=== PATIENT | male | born 1950 | race Caucasian/White ===

== ENCOUNTER 2019-10-15 08:46 | Inpatient (IN) ==
[2019-10-15] MEDS ORDERED: Azithromycin 500 MG in 0.9 % Sodium Chloride 250 ML IVPB ONE (09:04)
[2019-10-15] MEDS ORDERED: 0.9 % Sodium Chloride 1,000 ML IVC ONE ×2 (09:04→11:16)
[2019-10-15] MEDS ORDERED: cefTRIAXone 1,000 MG in Water for inj. (sterile) 10 ML IVP ONE (09:04)
[2019-10-15] MEDS ORDERED: Isovue-370 500 ML BOTTLE IVP ONE (09:07)
[2019-10-15] MEDS ORDERED: Ondansetron 4 MG/2 ML VIAL IVP ONE (09:32)
[2019-10-15 09:41] LABS: Basophils % 0.2 %; Hematocrit 52.7 % (37.5-50.1); Hemoglobin 17.3 g/dL (12.9-16.9); Immature Granulocytes % 0.7 % (0-4); Lymphocytes # 1.2 K/mcL (0.6-4.6); Lymphocytes % 7.1 %; Mean Corpuscular HGB Conc 32.8 g/dL (31.6-35.5); Mean Corpuscular Hemoglobin 31.9 pg (28.0-33.3); Mean Corpuscular Volume 97.2 fL (83.0-100.0); Mean Platelet Volume 10.8 fL (9.4-12.4); Monocytes # 1.2 K/mcL (0.0-1.3); Monocytes % 6.9 %; Neutrophils # 14.3 K/mcL (1.6-8.9); Platelet Count 434 K/mcL (140-400); Red Blood Count 5.42 M/mcL (4.19-5.50); Red Cell Distribution Width 13.5 % (11.5-14.5); Segmented Neutrophils % 85.1 %; White Blood Count 16.8 K/mcL (4.3-11.1)
[2019-10-15 09:43] LABS: Prothrombin Time 34.6 Seconds (9.4-12.1)
[2019-10-15 09:45] LABS: Activated Partial Thrombo Time 33.6 Seconds (26.0-36.0)
[2019-10-15] MEDS: DilTIAZem 50 MG in 0.9 % Sodium Chloride 40 ML IVC SCH ×2 (09:48→16:05)
[2019-10-15 10:20] LABS: Alanine Aminotransferase 48 Units/L (7-52); Albumin 3.5 g/dL (3.5-5.7); Albumin/Globulin Ratio 0.8 (1.1-2.2); Alkaline Phosphatase 165 Units/L (34-104); Aspartate Amino Transferase 37 Units/L (13-39); BUN/Creatinine Ratio 21 (6-26); Bilirubin,Direct 1.1 mg/dL (0.0-0.2); Bilirubin,Total 2.1 mg/dL (0.3-1.0); Blood Urea Nitrogen 42 mg/dL (8-23); Calcium 9.6 mg/dL (8.6-10.3); Carbon Dioxide 25 mEq/L (23-29); Chloride 91 mEq/L (98-107); Ferritin 1024 ng/mL (20-250); Globulin 4.6 g/dL (2.4-3.5); Glucose 167 mg/dL (70-105); Lipase 9 Units/L (11-82); Magnesium 2.1 mg/dL (1.6-2.6); Osmolality,Calculated 292 (280-300); Phosphorous 6.3 mg/dL (2.7-4.5); Potassium 3.5 mEq/L (3.5-5.1); Sodium 134 mEq/L (136-145); Total Protein 8.1 g/dL (6.4-8.9); Troponin I 0.03 ng/mL (< 0.04); eGFR For African Americans 39 (> 60); eGFR For Non-African Americans 32 (> 60)
[2019-10-15 10:33] LABS: Bilirubin,Urine Large (Negative); Blood,Urine Negative (Negative); Clarity,Urine Cloudy (Clear); Color,Urine Orange (Yellow); Glucose,Urine (UA) Normal (Normal); Ketones,Urine Trace mg/dL (Negative); Leukocyte Esterase,Urine Small (Negative); Nitrite,Urine Positive (Negative); Protein,Urine Trace mg/dL (Neg-Trace); Specific Gravity,Urine 1.024 (1.010-1.025)
[2019-10-15 10:36] LABS: Bacteria,Urine None Seen per hpf (None-Few); Squamous Epithelial Cell,Urine Many per lpf (None-Few)
[2019-10-15 11:02] LABS: RBC,Urine 0-3 per hpf (0-3)
[2019-10-15 11:20] LABS: VBG HCO3 24 mEq/L (21-27); VBG PCO2 34 mmHg (41-51); VBG PH 7.46 pH Units (7.32-7.42); VBG PO2 87 mmHg (25-50)
[2019-10-15] MEDS ORDERED: *HR* Promethazine 25 MG/ML VIAL IVP ONE (11:26)
[2019-10-15] MEDS ORDERED: *HR* FentaNYL (PF) 100 MCG/2 ML VIAL IVP ONE (11:32)
[2019-10-15] MEDS ORDERED: Piperacillin/Tazobactam 3.375 GM in 0.9 % Sodium Chloride Mini Bag 100 ML IVPB ONE (12:23)
[2019-10-15] MEDS ORDERED: Amiodarone Premix 150 MG/100 ML BAG IVPB ONE (12:55)
[2019-10-15 14:02] LABS: C-Reactive Protein > 300 mg/L (Less than 10)
[2019-10-15] MEDS ORDERED: *HR* Promethazine 25 MG/ML VIAL IVP PRN (14:36)
[2019-10-15] MEDS ORDERED: Naloxone 0.4 MG/ML INJ IVP PRN (14:36)
[2019-10-15] MEDS ORDERED: *HR* Dextrose 50 % in Water (Syg) 50 ML SYRINGE IVP PRN (14:40)
[2019-10-15] MEDS ORDERED: Dextrose Gel 15 GM/37.5 ML TUBE PO PRN ×2 (14:40)
[2019-10-15] MEDS ORDERED: D5% in Water 1,000 ML IVC PRN (14:40)
[2019-10-15] MEDS ORDERED: Ringers Solution, Lactated 1,000 ML IVC SCH ×2 (14:45→14:54)
[2019-10-15] MEDS ORDERED: *HR* Metoprolol 5 MG/5 ML VIAL IVP ONE (15:13)
[2019-10-15] MEDS: Pantoprazole 40 MG VIAL IVP SCH (15:47)
[2019-10-15] MEDS ORDERED: *HR* Digoxin 0.5 MG/2 ML AMPUL IVP ONE ×2 (15:59→18:12)
[2019-10-15] MEDS ORDERED: Amiodarone Premix 360 MG/200 ML BAG IVC ONE (16:58)
[2019-10-15] MEDS ORDERED: Amiodarone Premix 360 MG/200 ML BAG IVC SCH (17:00)
[2019-10-15] MEDS: 0.9 % Sodium Chloride 1,000 ML IVC SCH (18:01)
[2019-10-15] MEDS: Insulin LISPRO 300 UNITS/3 ML VIAL SQ SCH (18:19)
[2019-10-15 20:02] LABS: Adenovirus Not Detected (Not Detect); Bordetella Pertussis Not Detected (Not Detect); Chlamydophila pneumoniae Not Detected (Not Detect); Coronavirus 229E Not Detected (Not Detect); Coronavirus HKU1 Not Detected (Not Detect); Coronavirus NL63 Not Detected (Not Detect); Coronavirus OC43 Not Detected (Not Detect); Human Metapneumovirus Not Detected (Not Detect); Human Rhinovirus/Enterovirus Not Detected (Not Detect); Influenza A Subtype 2009 H1 Not Detected (Not Detect); Influenza B Not Detected (Not Detect); Mycoplasma pneumoniae Not Detected (Not Detect); Parainfluenza Virus 1 Not Detected (Not Detect); Parainfluenza Virus 2 Not Detected (Not Detect); Parainfluenza Virus 3 Not Detected (Not Detect); Parainfluenza Virus 4 Not Detected (Not Detect); Respiratory Syncytial Virus Not Detected (Not Detect)
[2019-10-16] MEDS: Piperacillin/Tazobactam 3.375 GM in 0.9 % Sodium Chloride Mini Bag 100 ML IVPB SCH ×3 (00:39→16:37)
[2019-10-16] MEDS: Insulin LISPRO 300 UNITS/3 ML VIAL SQ SCH ×4 (01:08→18:14)
[2019-10-16 05:15] LABS: Basophils % 0.2 %; Hematocrit 48.8 % (37.5-50.1); Immature Granulocytes % 0.7 % (0-4); Lymphocytes # 0.9 K/mcL (0.6-4.6); Lymphocytes % 4.5 %; Mean Corpuscular HGB Conc 32.2 g/dL (31.6-35.5); Mean Corpuscular Hemoglobin 31.5 pg (28.0-33.3); Mean Corpuscular Volume 97.8 fL (83.0-100.0); Mean Platelet Volume 10.3 fL (9.4-12.4); Monocytes % 5.2 %; Neutrophils # 17.2 K/mcL (1.6-8.9); Platelet Count 513 K/mcL (140-400); Red Blood Count 4.99 M/mcL (4.19-5.50); Red Cell Distribution Width 13.9 % (11.5-14.5); Segmented Neutrophils % 89.4 %; White Blood Count 19.2 K/mcL (4.3-11.1)
[2019-10-16 05:16] LABS: Hemoglobin 15.7 g/dL (12.9-16.9)
[2019-10-16 05:34] LABS: Magnesium 2.6 mg/dL (1.6-2.6); Phosphorous 6.5 mg/dL (2.7-4.5)
[2019-10-16 05:48] LABS: Thyroid Stimulating Hormone 2.371 mcIU/mL (0.340-5.600)
[2019-10-16 06:41] LABS: Calcium 8.5 mg/dL (8.6-10.3); Potassium 4.1 mEq/L (3.5-5.1)
[2019-10-16] MEDS: Pantoprazole 40 MG VIAL IVP SCH (07:47)
[2019-10-16] MEDS: 0.9 % Sodium Chloride 1,000 ML IVC SCH ×3 (07:48→22:02)
[2019-10-16] MEDS ORDERED: Amiodarone Premix 360 MG/200 ML BAG IVC SCH (15:45)
[2019-10-16] MEDS ORDERED: *HR* Heparin 5,000 UNIT/ML VIAL SQ SCH (18:00)
[2019-10-16] MEDS ORDERED: 0.9 % Sodium Chloride 1,000 ML IVC ONE (23:14)
[2019-10-17] MEDS ORDERED: Acetaminophen IV 1,000 MG/100 ML INFUS..BTL IVPB ONE (00:05)
[2019-10-17] MEDS: Insulin LISPRO 300 UNITS/3 ML VIAL SQ SCH ×5 (00:30→23:56)
[2019-10-17] MEDS: Piperacillin/Tazobactam 3.375 GM in 0.9 % Sodium Chloride Mini Bag 100 ML IVPB SCH ×2 (00:34→18:22)
[2019-10-17] MEDS ORDERED: D5% in Water 1,000 ML IVC PRN (00:53)
[2019-10-17] MEDS ORDERED: *HR* Promethazine 25 MG/ML VIAL IVP PRN (00:53)
[2019-10-17] MEDS ORDERED: 0.9 % Sodium Chloride 1,000 ML IVC SCH (00:53)
[2019-10-17] MEDS ORDERED: Naloxone 0.4 MG/ML INJ IVP PRN (00:53)
[2019-10-17] MEDS ORDERED: Dextrose Gel 15 GM/37.5 ML TUBE PO PRN ×2 (00:53)
[2019-10-17] MEDS ORDERED: *HR* Dextrose 50 % in Water (Syg) 50 ML SYRINGE IVP PRN (00:53)
[2019-10-17] MEDS: Amiodarone Premix 360 MG/200 ML BAG IVC SCH ×2 (03:37→16:09)
[2019-10-17 04:52] LABS: VBG HCO3 18 mEq/L (21-27); VBG PCO2 41 mmHg (41-51); VBG PH 7.24 pH Units (7.32-7.42); VBG PO2 65 mmHg (25-50)
[2019-10-17 05:00] LABS: Hematocrit 53.7 % (37.5-50.1); Mean Corpuscular HGB Conc 31.7 g/dL (31.6-35.5); Mean Corpuscular Hemoglobin 32.1 pg (28.0-33.3); Mean Corpuscular Volume 101.3 fL (83.0-100.0); Platelet Count 533 K/mcL (140-400); Red Cell Distribution Width 14.5 % (11.5-14.5); White Blood Count 21.4 K/mcL (4.3-11.1)
[2019-10-17 05:15] LABS: Albumin/Globulin Ratio 0.7 (1.1-2.2); Bilirubin,Direct 0.6 mg/dL (0.0-0.2); Bilirubin,Indirect 0.5 mg/dL (0.0-1.0); Bilirubin,Total 1.1 mg/dL (0.3-1.0); Calcium 8.7 mg/dL (8.6-10.3); Globulin 4.4 g/dL (2.4-3.5); Magnesium 2.7 mg/dL (1.6-2.6); Phosphorous 8.7 mg/dL (2.7-4.5); Potassium 4.5 mEq/L (3.5-5.1); Total Protein 7.4 g/dL (6.4-8.9)
[2019-10-17 05:37] LABS: INR 1.4; Prothrombin Time 16.4 Seconds (9.4-12.1)
[2019-10-17] MEDS: *HR* Heparin 5,000 UNIT/ML VIAL SQ SCH ×2 (06:09→17:04)
[2019-10-17] MEDS ORDERED: Piperacillin/Tazobactam 3.375 GM in 0.9 % Sodium Chloride Mini Bag 100 ML IVPB SCH (08:00)
[2019-10-17] MEDS: Pantoprazole 40 MG VIAL IVP SCH (09:51)
[2019-10-17] MEDS ORDERED: *HR* FentaNYL (PF) 100 MCG/2 ML VIAL ONE ×2 (10:06→12:20)
[2019-10-17] MEDS ORDERED: *HR* Midazolam HCl 2 MG/2 ML VIAL ONE (10:06)
[2019-10-17] MEDS ORDERED: *HR* Propofol 200 MG/20 ML VIAL IVP ONE (10:06)
[2019-10-17] MEDS ORDERED: *HR* Rocuronium Bromide 50 MG/5 ML VIAL ONE (10:06)
[2019-10-17] MEDS ORDERED: Lidocaine -MPF 2% 2 ML VIAL ONE (10:06)
[2019-10-17] MEDS ORDERED: Ondansetron 4 MG/2 ML VIAL ONE (10:06)
[2019-10-17] MEDS ORDERED: Lidocaine -MPF 4% 5 ML AMPUL ONE (10:06)
[2019-10-17] MEDS ORDERED: *HR* Succinylcholine 200 MG/10 ML VIAL IVP ONE (10:09)
[2019-10-17] MEDS ORDERED: EPHEDrine 50 MG/ML VIAL ONE (10:11)
[2019-10-17] MEDS ORDERED: CefOXitin 1,000 MG VIAL ONE ×2 (10:13→12:15)
[2019-10-17] MEDS ORDERED: D5% in Water 0 ML ONE (10:16)
[2019-10-17] MEDS ORDERED: *HR* Norepinephrine 4 MG/4 ML VIAL IVC ONE (10:16)
[2019-10-17] MEDS ORDERED: Albumin Human 5% 25.0 GM/500 ML IV.SOLN ONE (10:17)
[2019-10-17] MEDS ORDERED: *HR* Vasopressin 20 UNIT/ML VIAL ONE (10:17)
[2019-10-17] MEDS ORDERED: Heparin 1,000 UNITS/500 mL 500 ML ONE (10:18)
[2019-10-17] MEDS ORDERED: *HR* Phenylephrine 10 MG/ML VIAL ONE ×2 (10:22→12:05)
[2019-10-17] MEDS ORDERED: *HR* Etomidate 40 MG/20 ML VIAL IVP ONE (11:07)
[2019-10-17] MEDS ORDERED: *HR* PHENYLEPHRINE 1,000 MCG/10 ML SYRINGE IVP ONE ×2 (12:03→12:36)
[2019-10-17] MEDS ORDERED: Phenylephrine 10 MG in 0.9 % Sodium Chloride 250 ML IVC SCH (13:00)
[2019-10-17 13:17] LABS: Acinetobacter baumannii by PCR Not Detected (Not Detect); Candida albicans by PCR Not Detected (Not Detect); Candida glabrata by PCR Not Detected (Not Detect); Candida krusei by PCR Not Detected (Not Detect); Candida parapsilosis by PCR Not Detected (Not Detect); Candida tropicalis by PCR Not Detected (Not Detect); Enterobacter cloacae Cmplx PCR Not Detected (Not Detect); Enterobacteriaceae by PCR Not Detected (Not Detect); Enterococcus by PCR Not Detected (Not Detect); Escherichia coli by PCR Not Detected (Not Detect); Klebsiella oxytoca by PCR Not Detected (Not Detect); Klebsiella pneumoniae by PCR Not Detected (Not Detect); Proteus by PCR Not Detected (Not Detect); Pseudomonas aeruginosa by PCR Not Detected (Not Detect); Serratia marcescens by PCR Not Detected (Not Detect); Staphylococcus aureus by PCR Not Detected (Not Detect); Staphylococcus by PCR DETECTED (Not Detect); Streptococcus agalactiae(B)PCR Not Detected (Not Detect); Streptococcus by PCR Not Detected (Not Detect); Streptococcus pneumoniae PCR Not Detected (Not Detect); Streptococcus pyogenes (A) PCR Not Detected (Not Detect); mecA Methicillin-Resist Gene Not Detected (Not Detect)
[2019-10-17 13:44] LABS: ABG Base Excess -12 mEq/L (-2 to 3); ABG HCO3 19 mEq/L (21-27); ABG Oxygen Saturation 99 % (95-98); ABG PCO2 59 mmHg (35-45); ABG PH 7.11 pH Units (7.32-7.45); ABG PO2 160 mmHg (85-104); ABG TCO2 21 mEq/L (20-26); Blood Gas Modality ASSIST CONTROL; Blood Gas VT 500 cc
[2019-10-17] MEDS ORDERED: Sodium Bicarbonate 150 MEQ in D5% in Water 1,000 ML IVC SCH (14:00)
[2019-10-17] MEDS ORDERED: Vancomycin 1 EACH in 0.9 % Sodium Chloride 250 ML IVPB PRN (14:00)
[2019-10-17] MEDS ORDERED: Sodium Bicarbonate 50 MEQ/50 ML VIAL ONE (14:16)
[2019-10-17] MEDS: Norepinephrine 4 MG in 0.9 % Sodium Chloride 250 ML IVC SCH ×2 (14:22→20:06)
[2019-10-17] MEDS ORDERED: Phenylephrine 20 MG in 0.9 % Sodium Chloride 250 ML IVC SCH (14:45)
[2019-10-17] MEDS: FentaNYL (PF) 1,000 MCG in 0.9 % Sodium Chloride 80 ML IVC SCH ×2 (14:49→23:58)
[2019-10-17 14:53] LABS: Calcium 8.4 mg/dL (8.6-10.3); Potassium 4.7 mEq/L (3.5-5.1)
[2019-10-17] MEDS: Phenylephrine 50 MG in 0.9 % Sodium Chloride 250 ML IVC SCH ×2 (15:25→20:07)
[2019-10-17 16:19] LABS: ABG Base Excess -10 mEq/L (-2 to 3); ABG HCO3 19 mEq/L (21-27); ABG Oxygen Saturation 94 % (95-98); ABG PCO2 50 mmHg (35-45); ABG PH 7.18 pH Units (7.32-7.45); ABG PO2 89 mmHg (85-104); ABG TCO2 20 mEq/L (20-26); Blood Gas Modality ASSIST CONTROL; Blood Gas VT 550 cc
[2019-10-17] MEDS: Micafungin 100 MG in 0.9 % Sodium Chloride Mini Bag 100 ML IVPB SCH (16:59)
[2019-10-17] MEDS ORDERED: Perflutren Lipid Microsphere 1.3 ML in 0.9 % Sodium Chloride 8.7 ML IVP ONE (17:13)
[2019-10-17] MEDS: Dexmedetomidine HCl 400 MCG/100 ML MLS IVC SCH (17:18)
[2019-10-17 18:30] LABS: ABG Base Excess -9 mEq/L (-2 to 3); ABG HCO3 18 mEq/L (21-27); ABG Oxygen Saturation 98 % (95-98); ABG PCO2 43 mmHg (35-45); ABG PH 7.24 pH Units (7.32-7.45); ABG PO2 117 mmHg (85-104); ABG TCO2 20 mEq/L (20-26); Blood Gas Modality ASSIST CONTROL; Blood Gas VT 550 cc
[2019-10-17 22:24] LABS: ABG Base Excess -7 mEq/L (-2 to 3); ABG HCO3 20 mEq/L (21-27); ABG Oxygen Saturation 91 % (95-98); ABG PCO2 44 mmHg (35-45); ABG PH 7.26 pH Units (7.32-7.45); ABG PO2 71 mmHg (85-104); ABG TCO2 21 mEq/L (20-26); Blood Gas Modality VC; Blood Gas VT 550 cc
[2019-10-18] MEDS: Phenylephrine 50 MG in 0.9 % Sodium Chloride 250 ML IVC SCH ×5 (01:20→22:09)
[2019-10-18] MEDS: Piperacillin/Tazobactam 3.375 GM in 0.9 % Sodium Chloride Mini Bag 100 ML IVPB SCH ×2 (01:50→14:44)
[2019-10-18] MEDS: Norepinephrine 4 MG in 0.9 % Sodium Chloride 250 ML IVC SCH ×2 (01:55→10:35)
[2019-10-18] MEDS: Dexmedetomidine HCl 400 MCG/100 ML MLS IVC SCH ×3 (03:14→22:09)
[2019-10-18] MEDS: Amiodarone Premix 360 MG/200 ML BAG IVC SCH ×3 (03:15→17:04)
[2019-10-18 04:24] LABS: Hematocrit 43.1 % (37.5-50.1); Hemoglobin 13.9 g/dL (12.9-16.9); Mean Corpuscular HGB Conc 32.3 g/dL (31.6-35.5); Mean Corpuscular Hemoglobin 31.4 pg (28.0-33.3); Mean Corpuscular Volume 97.3 fL (83.0-100.0); Mean Platelet Volume 9.9 fL (9.4-12.4); Platelet Count 443 K/mcL (140-400); Red Blood Count 4.43 M/mcL (4.19-5.50); Red Cell Distribution Width 14.6 % (11.5-14.5); White Blood Count 16.5 K/mcL (4.3-11.1)
[2019-10-18 04:56] LABS: Albumin 2.4 g/dL (3.5-5.7); Albumin/Globulin Ratio 0.8 (1.1-2.2); Calcium 7.5 mg/dL (8.6-10.3); Globulin 3.2 g/dL (2.4-3.5); Magnesium 2.5 mg/dL (1.6-2.6); Potassium 4.8 mEq/L (3.5-5.1); Total Protein 5.6 g/dL (6.4-8.9); Troponin I 0.08 ng/mL (< 0.04)
[2019-10-18 05:02] LABS: ABG Base Excess -7 mEq/L (-2 to 3); ABG HCO3 20 mEq/L (21-27); ABG Oxygen Saturation 96 % (95-98); ABG PCO2 42 mmHg (35-45); ABG PH 7.28 pH Units (7.32-7.45); ABG PO2 96 mmHg (85-104); ABG TCO2 21 mEq/L (20-26); Blood Gas Modality ASSIST CONTROL; Blood Gas VT 550 cc
[2019-10-18] MEDS: *HR* Heparin 5,000 UNIT/ML VIAL SQ SCH ×2 (05:30→18:24)
[2019-10-18] MEDS: Insulin LISPRO 300 UNITS/3 ML VIAL SQ SCH ×5 (05:35→23:06)
[2019-10-18] MEDS: Micafungin 100 MG in 0.9 % Sodium Chloride Mini Bag 100 ML IVPB SCH (08:13)
[2019-10-18] MEDS: Pantoprazole 40 MG VIAL IVP SCH (08:17)
[2019-10-18] MEDS: Levalbuterol Neb 1.25 MG/3 ML IH SCH ×5 (09:13→23:38)
[2019-10-18] MEDS ORDERED: Heparin 1,000 UNITS/500 mL 500 ML ONE (09:37)
[2019-10-18] MEDS ORDERED: *HR* Heparin 5,000 UNIT/ML VIAL ONE (09:39)
[2019-10-18] MEDS ORDERED: 0.9 % Sodium Chloride 1,000 ML PRIME ONE ×2 (10:16)
[2019-10-18] MEDS ORDERED: *HR* Alteplase (Cathflo) 2 MG VIAL IVP PRN (10:16)
[2019-10-18] MEDS ORDERED: 0.9 % Sodium Chloride 1,000 ML PRIME SCH (10:30)
[2019-10-18] MEDS: FentaNYL (PF) 1,000 MCG in 0.9 % Sodium Chloride 80 ML IVC SCH ×2 (10:34→19:43)
[2019-10-18 12:09] LABS: Phosphorous 9.7 mg/dL (2.7-4.5)
[2019-10-18] MEDS: Sodium Bicarbonate 150 MEQ in D5% in Water 1,000 ML IVC SCH (12:21)
[2019-10-18] MEDS: PrismaSATE BGK 4/2.5 5,000 ML CRRT SCH ×4 (13:44→20:26)
[2019-10-18] MEDS ORDERED: 0.9 % Sodium Chloride 500 ML ONE (13:54)
[2019-10-18 16:35] LABS: VBG Ionized Calcium 0.93 mmol/L (1.15-1.35)
[2019-10-18 16:59] LABS: Calcium 7.4 mg/dL (8.6-10.3); Phosphorous 8.9 mg/dL (2.7-4.5); Potassium 4.7 mEq/L (3.5-5.1); Troponin I 0.08 ng/mL (< 0.04)
[2019-10-18] MEDS ORDERED: Clinimix 5%-20% SOLUTION 2,000 ML with MVI, adult with vitamin K 10 ML, Sodium Acetat... IVC SCH (17:00)
[2019-10-18 20:20] LABS: Magnesium 2.6 mg/dL (1.6-2.6)
[2019-10-18 23:11] LABS: ABG Base Excess -5 mEq/L (-2 to 3); ABG HCO3 21 mEq/L (21-27); ABG Oxygen Saturation 97 % (95-98); ABG PCO2 38 mmHg (35-45); ABG PH 7.34 pH Units (7.32-7.45); ABG PO2 99 mmHg (85-104); ABG TCO2 22 mEq/L (20-26); Blood Gas Modality AF; Blood Gas VT 550 cc
[2019-10-19] MEDS: Sodium Bicarbonate 150 MEQ in D5% in Water 1,000 ML IVC SCH (00:31)
[2019-10-19] MEDS: PrismaSATE BGK 4/2.5 5,000 ML CRRT SCH ×8 (01:16→17:53)
[2019-10-19] MEDS: Piperacillin/Tazobactam 3.375 GM in 0.9 % Sodium Chloride Mini Bag 100 ML IVPB SCH ×3 (01:53→20:24)
[2019-10-19] MEDS ORDERED: 0.9 % Sodium Chloride 500 ML ONE ×2 (03:26→12:26)
[2019-10-19] MEDS: Levalbuterol Neb 1.25 MG/3 ML IH SCH ×6 (03:30→23:10)
[2019-10-19 03:56] LABS: Basophils % 0.1 %; Eosinophils % 0.1 %; Hematocrit 34.8 % (37.5-50.1); Hemoglobin 11.4 g/dL (12.9-16.9); Immature Granulocytes % 1.1 % (0-4); Lymphocytes # 0.9 K/mcL (0.6-4.6); Mean Corpuscular HGB Conc 32.8 g/dL (31.6-35.5); Mean Corpuscular Hemoglobin 31.5 pg (28.0-33.3); Mean Corpuscular Volume 96.1 fL (83.0-100.0); Mean Platelet Volume 10.3 fL (9.4-12.4); Monocytes # 0.6 K/mcL (0.0-1.3); Monocytes % 4.3 %; Neutrophils # 13.2 K/mcL (1.6-8.9); Platelet Count 260 K/mcL (140-400); Red Blood Count 3.62 M/mcL (4.19-5.50); Red Cell Distribution Width 14.7 % (11.5-14.5); Segmented Neutrophils % 88.4 %
[2019-10-19] MEDS: *HR* Heparin 5,000 UNIT/ML VIAL CRRT PRN ×2 (04:04→23:16)
[2019-10-19] MEDS: FentaNYL (PF) 1,000 MCG in 0.9 % Sodium Chloride 80 ML IVC SCH ×3 (04:04→21:16)
[2019-10-19] MEDS: Norepinephrine 4 MG in 0.9 % Sodium Chloride 250 ML IVC SCH ×2 (04:06→15:18)
[2019-10-19] MEDS: Dexmedetomidine HCl 400 MCG/100 ML MLS IVC SCH ×4 (04:09→23:17)
[2019-10-19] MEDS: Amiodarone Premix 360 MG/200 ML BAG IVC SCH ×2 (04:27→16:50)
[2019-10-19] MEDS: Insulin LISPRO 300 UNITS/3 ML VIAL SQ SCH ×5 (04:28→20:22)
[2019-10-19 05:05] LABS: ABG Base Excess -3 mEq/L (-2 to 3); ABG HCO3 23 mEq/L (21-27); ABG Oxygen Saturation 97 % (95-98); ABG PCO2 42 mmHg (35-45); ABG PH 7.34 pH Units (7.32-7.45); ABG PO2 100 mmHg (85-104); ABG TCO2 24 mEq/L (20-26); Blood Gas Modality AF; Blood Gas VT 550 cc
[2019-10-19 05:17] LABS: Albumin 2.2 g/dL (3.5-5.7); Albumin/Globulin Ratio 0.7 (1.1-2.2); Bilirubin,Direct 0.5 mg/dL (0.0-0.2); Bilirubin,Indirect 0.4 mg/dL (0.0-1.0); Bilirubin,Total 0.9 mg/dL (0.3-1.0); Calcium 7.4 mg/dL (8.6-10.3); Globulin 3.1 g/dL (2.4-3.5); Magnesium 2.4 mg/dL (1.6-2.6); Phosphorous 6.5 mg/dL (2.7-4.5); Potassium 4.5 mEq/L (3.5-5.1); Total Protein 5.3 g/dL (6.4-8.9)
[2019-10-19] MEDS: *HR* Heparin 5,000 UNIT/ML VIAL SQ SCH ×2 (05:48→16:49)
[2019-10-19] MEDS: Micafungin 100 MG in 0.9 % Sodium Chloride Mini Bag 100 ML IVPB SCH (07:39)
[2019-10-19] MEDS: Pantoprazole 40 MG VIAL IVP SCH (07:41)
[2019-10-19] MEDS: Chlorhexidine Rinse 15 ML MOUTHWASH MM SCH ×2 (09:22→20:24)
[2019-10-19] MEDS: Phenylephrine 50 MG in 0.9 % Sodium Chloride 250 ML IVC SCH (13:37)
[2019-10-19] MEDS ORDERED: Clinimix 5%-20% SOLUTION 2,000 ML with MVI, adult with vitamin K 10 ML, Sodium Acetat... IVC SCH (17:00)
[2019-10-19] MEDS ORDERED: *HR* Heparin 5,000 UNIT/ML VIAL ONE (18:17)
[2019-10-19] MEDS ORDERED: SODIUM CHLORIDE 0.9% IVC SCH (21:15)
[2019-10-19] MEDS ORDERED: FENTANYL IVC SCH (21:15)
[2019-10-19] MEDS: Norepinephrine 8 MG in 0.9 % Sodium Chloride 250 ML IVC SCH (23:08)
[2019-10-20] MEDS: Insulin LISPRO 300 UNITS/3 ML VIAL SQ SCH ×6 (00:12→19:59)
[2019-10-20] MEDS: Amiodarone Premix 360 MG/200 ML BAG IVC SCH ×2 (02:08→16:26)
[2019-10-20] MEDS: Levalbuterol Neb 1.25 MG/3 ML IH SCH ×6 (03:01→23:10)
[2019-10-20] MEDS: Piperacillin/Tazobactam 3.375 GM in 0.9 % Sodium Chloride Mini Bag 100 ML IVPB SCH ×3 (03:41→19:54)
[2019-10-20] MEDS: Dexmedetomidine HCl 400 MCG/100 ML MLS IVC SCH ×4 (03:42→20:59)
[2019-10-20 03:48] LABS: Hematocrit 37.3 % (37.5-50.1); Hemoglobin 12.5 g/dL (12.9-16.9); Mean Corpuscular HGB Conc 33.5 g/dL (31.6-35.5); Mean Corpuscular Hemoglobin 31.3 pg (28.0-33.3); Mean Corpuscular Volume 93.5 fL (83.0-100.0); Mean Platelet Volume 10.3 fL (9.4-12.4); Platelet Count 233 K/mcL (140-400); Red Blood Count 3.99 M/mcL (4.19-5.50); Red Cell Distribution Width 14.6 % (11.5-14.5); White Blood Count 15.8 K/mcL (4.3-11.1)
[2019-10-20 04:08] LABS: Albumin 2.2 g/dL (3.5-5.7); Albumin/Globulin Ratio 0.7 (1.1-2.2); Calcium 7.3 mg/dL (8.6-10.3); Magnesium 2.4 mg/dL (1.6-2.6); Phosphorous 4.8 mg/dL (2.7-4.5); Potassium 4.8 mEq/L (3.5-5.1); Total Protein 5.3 g/dL (6.4-8.9)
[2019-10-20 04:09] LABS: Globulin 3.1 g/dL (2.4-3.5)
[2019-10-20 04:19] LABS: ABG Base Excess -1 mEq/L (-2 to 3); ABG HCO3 24 mEq/L (21-27); ABG Oxygen Saturation 96 % (95-98); ABG PCO2 38 mmHg (35-45); ABG PH 7.41 pH Units (7.32-7.45); ABG PO2 80 mmHg (85-104); ABG TCO2 25 mEq/L (20-26); Blood Gas Modality VC; Blood Gas VT 550 cc
[2019-10-20] MEDS: *HR* Heparin 5,000 UNIT/ML VIAL SQ SCH ×2 (05:16→16:27)
[2019-10-20] MEDS: Pantoprazole 40 MG VIAL IVP SCH (08:06)
[2019-10-20] MEDS: Chlorhexidine Rinse 15 ML MOUTHWASH MM SCH ×2 (08:06→19:54)
[2019-10-20] MEDS: Micafungin 100 MG in 0.9 % Sodium Chloride Mini Bag 100 ML IVPB SCH (08:06)
[2019-10-20] MEDS ORDERED: *HR* Metoprolol 5 MG/5 ML VIAL IVP PRN (10:44)
[2019-10-20] MEDS ORDERED: D10% in Water 500 ML IVC PRN (11:12)
[2019-10-20] MEDS: Norepinephrine 8 MG in 0.9 % Sodium Chloride 250 ML IVC SCH (13:39)
[2019-10-20] MEDS ORDERED: Clinimix E 5%-15% SOLUTION 2,000 ML with MVI, adult with vitamin K 10 ML IVC SCH (17:00)
[2019-10-20] MEDS: Lacri-Lube 3.5 GM TUBE OP SCH (19:58)
[2019-10-21] MEDS: Insulin LISPRO 300 UNITS/3 ML VIAL SQ SCH ×7 (00:26→23:56)
[2019-10-21] MEDS: Levalbuterol Neb 1.25 MG/3 ML IH SCH ×6 (03:03→23:30)
[2019-10-21] MEDS: Dexmedetomidine HCl 400 MCG/100 ML MLS IVC SCH ×5 (03:10→21:03)
[2019-10-21 03:23] LABS: Basophils # 0.1 K/mcL (0.0-0.2); Basophils % 0.4 %; Eosinophils # 0.1 K/mcL (0.0-0.6); Eosinophils % 0.4 %; Hematocrit 36.1 % (37.5-50.1); Hemoglobin 12.1 g/dL (12.9-16.9); Immature Granulocytes % 2.9 % (0-4); Lymphocytes % 6.5 %; Mean Corpuscular HGB Conc 33.5 g/dL (31.6-35.5); Mean Corpuscular Volume 92.6 fL (83.0-100.0); Mean Platelet Volume 10.7 fL (9.4-12.4); Monocytes % 6.5 %; Neutrophils # 13.2 K/mcL (1.6-8.9); Platelet Count 200 K/mcL (140-400); Red Cell Distribution Width 14.6 % (11.5-14.5); Segmented Neutrophils % 83.3 %; White Blood Count 15.8 K/mcL (4.3-11.1)
[2019-10-21 03:42] LABS: Albumin/Globulin Ratio 0.6 (1.1-2.2); Bilirubin,Direct 0.6 mg/dL (0.0-0.2); Bilirubin,Indirect 0.4 mg/dL (0.0-1.0); Globulin 3.2 g/dL (2.4-3.5); Total Protein 5.2 g/dL (6.4-8.9)
[2019-10-21 04:02] LABS: Calcium 7.5 mg/dL (8.6-10.3); Magnesium 2.6 mg/dL (1.6-2.6); Potassium 4.8 mEq/L (3.5-5.1)
[2019-10-21] MEDS: Amiodarone Premix 360 MG/200 ML BAG IVC SCH ×2 (04:04→16:59)
[2019-10-21] MEDS: Piperacillin/Tazobactam 3.375 GM in 0.9 % Sodium Chloride Mini Bag 100 ML IVPB SCH ×3 (04:07→20:47)
[2019-10-21 04:26] LABS: ABG Base Excess -3 mEq/L (-2 to 3); ABG HCO3 21 mEq/L (21-27); ABG Oxygen Saturation 97 % (95-98); ABG PCO2 31 mmHg (35-45); ABG PH 7.43 pH Units (7.32-7.45); ABG PO2 90 mmHg (85-104); ABG TCO2 22 mEq/L (20-26); Blood Gas Modality VC; Blood Gas VT 500 cc
[2019-10-21] MEDS: *HR* Heparin 5,000 UNIT/ML VIAL SQ SCH (06:39)
[2019-10-21] MEDS: Pantoprazole 40 MG VIAL IVP SCH (07:37)
[2019-10-21] MEDS: Chlorhexidine Rinse 15 ML MOUTHWASH MM SCH ×2 (07:37→20:51)
[2019-10-21] MEDS: Micafungin 100 MG in 0.9 % Sodium Chloride Mini Bag 100 ML IVPB SCH (07:37)
[2019-10-21] MEDS: Lacri-Lube 3.5 GM TUBE OP SCH ×2 (07:41→20:52)
[2019-10-21 12:49] LABS: VBG Ionized Calcium 1.02 mmol/L (1.15-1.35)
[2019-10-21] MEDS ORDERED: *HR* Heparin 5,000 UNIT/ML VIAL IVP PRN (13:04)
[2019-10-21] MEDS ORDERED: *HR* Heparin 5,000 UNIT/ML VIAL CRRT PRN (13:07)
[2019-10-21] MEDS ORDERED: Calcium Gluconate 1gm/50mL 1 GM/50 ML BAG IVPB PRN ×2 (13:07)
[2019-10-21] MEDS ORDERED: Calcium Chloride 4,000 MG in 0.9 % Sodium Chloride 1,000 ML CRRT SCH (13:15)
[2019-10-21] MEDS: Heparin 25,000 UNIT/250 ML D5W 25,000 UNIT/250 ML IV.SOLN IVC SCH (14:45)
[2019-10-21] MEDS: PrismaSATE BGK 4/2.5 5,000 ML CRRT SCH ×6 (15:15→22:45)
[2019-10-21] MEDS ORDERED: Clinimix E 5%-15% SOLUTION 2,000 ML with MVI, adult with vitamin K 10 ML IVC SCH (17:00)
[2019-10-21] MEDS: D10% in Water 500 ML IVC PRN (17:27)
[2019-10-21 17:30] LABS: Hematocrit 35.2 % (37.5-50.1); Hemoglobin 11.8 g/dL (12.9-16.9)
[2019-10-21] MEDS ORDERED: *HR* Metoprolol 5 MG/5 ML VIAL IVP PRN (18:52)
[2019-10-21] MEDS ORDERED: *HR* Heparin 5,000 UNIT/ML VIAL ONE (20:12)
[2019-10-21] MEDS: 0.9 % Sodium Chloride 1,000 ML PRIME SCH ×2 (21:00→21:06)
[2019-10-21] MEDS: *HR* Heparin 5,000 UNIT/ML VIAL IVP PRN (21:15)
[2019-10-21] MEDS: *HR* Metoprolol 5 MG/5 ML VIAL IVP SCH (23:57)
[2019-10-22] MEDS: Dexmedetomidine HCl 400 MCG/100 ML MLS IVC SCH ×7 (00:26→22:30)
[2019-10-22] MEDS: *HR* Heparin 5,000 UNIT/ML VIAL IVP PRN (01:59)
[2019-10-22] MEDS: PrismaSATE BGK 4/2.5 5,000 ML CRRT SCH ×14 (02:04→22:46)
[2019-10-22] MEDS: Levalbuterol Neb 1.25 MG/3 ML IH SCH ×7 (03:42→23:38)
[2019-10-22] MEDS: Insulin LISPRO 300 UNITS/3 ML VIAL SQ SCH ×5 (04:00→20:23)
[2019-10-22] MEDS: D10% in Water 500 ML IVC PRN (04:02)
[2019-10-22 04:19] LABS: Basophils # 0.1 K/mcL (0.0-0.2); Basophils % 0.5 %; Eosinophils # 0.1 K/mcL (0.0-0.6); Eosinophils % 0.8 %; Hematocrit 34.9 % (37.5-50.1); Hemoglobin 11.9 g/dL (12.9-16.9); Immature Granulocytes % 4.7 % (0-4); Lymphocytes # 0.8 K/mcL (0.6-4.6); Lymphocytes % 5.4 %; Mean Corpuscular HGB Conc 34.1 g/dL (31.6-35.5); Mean Corpuscular Hemoglobin 31.8 pg (28.0-33.3); Mean Corpuscular Volume 93.3 fL (83.0-100.0); Mean Platelet Volume 10.5 fL (9.4-12.4); Monocytes # 0.9 K/mcL (0.0-1.3); Monocytes % 5.8 %; Neutrophils # 12.6 K/mcL (1.6-8.9); Platelet Count 181 K/mcL (140-400); Red Blood Count 3.74 M/mcL (4.19-5.50); Red Cell Distribution Width 14.6 % (11.5-14.5); Segmented Neutrophils % 82.8 %; White Blood Count 15.3 K/mcL (4.3-11.1)
[2019-10-22 04:31] LABS: Albumin/Globulin Ratio 0.6 (1.1-2.2); Bilirubin,Indirect 0.7 mg/dL (0.0-1.0); Bilirubin,Total 1.7 mg/dL (0.3-1.0); Calcium 7.5 mg/dL (8.6-10.3); Globulin 3.2 g/dL (2.4-3.5); Magnesium 2.5 mg/dL (1.6-2.6); Phosphorous 5.3 mg/dL (2.7-4.5); Potassium 4.5 mEq/L (3.5-5.1); Total Protein 5.2 g/dL (6.4-8.9)
[2019-10-22 04:59] LABS: ABG Base Excess 1 mEq/L (-2 to 3); ABG HCO3 25 mEq/L (21-27); ABG Oxygen Saturation 98 % (95-98); ABG PCO2 36 mmHg (35-45); ABG PH 7.45 pH Units (7.32-7.45); ABG PO2 94 mmHg (85-104); ABG TCO2 26 mEq/L (20-26); Blood Gas Modality AF; Blood Gas VT 500 cc
[2019-10-22] MEDS: *HR* Metoprolol 5 MG/5 ML VIAL IVP SCH ×3 (06:43→16:23)
[2019-10-22] MEDS: Piperacillin/Tazobactam 3.375 GM in 0.9 % Sodium Chloride Mini Bag 100 ML IVPB SCH ×3 (06:47→20:23)
[2019-10-22] MEDS: Norepinephrine 8 MG in 0.9 % Sodium Chloride 250 ML IVC SCH ×2 (07:09→21:48)
[2019-10-22] MEDS: Micafungin 100 MG in 0.9 % Sodium Chloride Mini Bag 100 ML IVPB SCH (08:27)
[2019-10-22] MEDS: Chlorhexidine Rinse 15 ML MOUTHWASH MM SCH ×2 (08:27→20:24)
[2019-10-22] MEDS: Lacri-Lube 3.5 GM TUBE OP SCH ×2 (08:28→20:24)
[2019-10-22] MEDS ORDERED: Lidocaine -MPF 1% 5 ML AMPUL INFILT ONE (08:34)
[2019-10-22] MEDS: Heparin 25,000 UNIT/250 ML D5W 25,000 UNIT/250 ML IV.SOLN IVC SCH (11:00)
[2019-10-22] MEDS: Phenylephrine 50 MG in 0.9 % Sodium Chloride 250 ML IVC SCH (15:18)
[2019-10-22] MEDS: Albumin 25% 25gram/100mL 25 GM/100 ML IV.SOLN IVPB SCH ×3 (16:21→19:54)
[2019-10-22] MEDS ORDERED: Clinimix E 5%-15% SOLUTION 2,000 ML with MVI, adult with vitamin K 10 ML IVC SCH (17:00)
[2019-10-22] MEDS ORDERED: 0.9 % Sodium Chloride 2,000 ML ONE ×2 (21:13→22:13)
[2019-10-22] MEDS ORDERED: *HR* Heparin 5,000 UNIT/ML VIAL ONE ×2 (21:13→22:13)
[2019-10-22] MEDS: 0.9 % Sodium Chloride 1,000 ML PRIME SCH (22:00)
[2019-10-22] MEDS: *HR* Heparin 5,000 UNIT/ML VIAL CRRT PRN ×2 (22:47→22:49)
[2019-10-23] MEDS: *HR* Metoprolol 5 MG/5 ML VIAL IVP SCH ×5 (00:13→23:53)
[2019-10-23] MEDS: Insulin LISPRO 300 UNITS/3 ML VIAL SQ SCH ×7 (00:38→23:53)
[2019-10-23] MEDS: Dexmedetomidine HCl 400 MCG/100 ML MLS IVC SCH ×6 (01:41→21:36)
[2019-10-23] MEDS: PrismaSATE BGK 4/2.5 5,000 ML CRRT SCH ×14 (02:06→21:34)
[2019-10-23] MEDS: Heparin 25,000 UNIT/250 ML D5W 25,000 UNIT/250 ML IV.SOLN IVC SCH (03:12)
[2019-10-23] MEDS: Levalbuterol Neb 1.25 MG/3 ML IH SCH ×6 (03:42→23:21)
[2019-10-23 03:59] LABS: Hematocrit 28.8 % (37.5-50.1); Mean Corpuscular HGB Conc 33.7 g/dL (31.6-35.5); Mean Corpuscular Hemoglobin 31.8 pg (28.0-33.3); Mean Corpuscular Volume 94.4 fL (83.0-100.0); Mean Platelet Volume 11.1 fL (9.4-12.4); Platelet Count 173 K/mcL (140-400); Red Blood Count 3.05 M/mcL (4.19-5.50); Red Cell Distribution Width 14.6 % (11.5-14.5); White Blood Count 13.9 K/mcL (4.3-11.1)
[2019-10-23 04:00] LABS: Hemoglobin 9.7 g/dL (12.9-16.9)
[2019-10-23] MEDS: Piperacillin/Tazobactam 3.375 GM in 0.9 % Sodium Chloride Mini Bag 100 ML IVPB SCH ×3 (04:18→19:44)
[2019-10-23 04:21] LABS: ABG Base Excess 2 mEq/L (-2 to 3); ABG HCO3 27 mEq/L (21-27); ABG Oxygen Saturation 97 % (95-98); ABG PCO2 41 mmHg (35-45); ABG PH 7.42 pH Units (7.32-7.45); ABG PO2 85 mmHg (85-104); ABG TCO2 28 mEq/L (20-26); Blood Gas Modality AF; Blood Gas VT 500 cc
[2019-10-23 04:23] LABS: Calcium 7.7 mg/dL (8.6-10.3); Magnesium 2.5 mg/dL (1.6-2.6); Phosphorous 3.5 mg/dL (2.7-4.5); Potassium 4.4 mEq/L (3.5-5.1)
[2019-10-23] MEDS: Micafungin 100 MG in 0.9 % Sodium Chloride Mini Bag 100 ML IVPB SCH (07:47)
[2019-10-23] MEDS: Chlorhexidine Rinse 15 ML MOUTHWASH MM SCH ×2 (07:47→19:45)
[2019-10-23] MEDS: Lacri-Lube 3.5 GM TUBE OP SCH ×2 (07:48→19:52)
[2019-10-23] MEDS ORDERED: *HR* Heparin 5,000 UNIT/ML VIAL ONE ×2 (09:25→21:47)
[2019-10-23 14:36] LABS: Hematocrit 30.1 % (37.5-50.1); Hemoglobin 9.9 g/dL (12.9-16.9)
[2019-10-23] MEDS: Phenylephrine 50 MG in 0.9 % Sodium Chloride 250 ML IVC SCH (15:29)
[2019-10-23] MEDS: Albumin 25% 25gram/100mL 25 GM/100 ML IV.SOLN IVPB SCH ×3 (16:18→19:42)
[2019-10-23] MEDS: *HR* Heparin 5,000 UNIT/ML VIAL SQ SCH (16:18)
[2019-10-23] MEDS ORDERED: Clinimix E 5%-15% SOLUTION 2,000 ML with MVI, adult with vitamin K 10 ML IVC SCH (17:00)
[2019-10-23] MEDS: Norepinephrine 8 MG in 0.9 % Sodium Chloride 250 ML IVC SCH (21:29)
[2019-10-23] MEDS ORDERED: 0.9 % Sodium Chloride 2,000 ML ONE (21:47)
[2019-10-23] MEDS: 0.9 % Sodium Chloride 1,000 ML PRIME SCH (22:38)
[2019-10-24] MEDS: PrismaSATE BGK 4/2.5 5,000 ML CRRT SCH ×4 (00:53→05:10)
[2019-10-24] MEDS: Dexmedetomidine HCl 400 MCG/100 ML MLS IVC SCH ×7 (01:10→21:57)
[2019-10-24] MEDS ORDERED: *HR* Heparin 5,000 UNIT/ML VIAL ONE (02:55)
[2019-10-24] MEDS: Levalbuterol Neb 1.25 MG/3 ML IH SCH ×5 (03:19→19:42)
[2019-10-24] MEDS: Piperacillin/Tazobactam 3.375 GM in 0.9 % Sodium Chloride Mini Bag 100 ML IVPB SCH ×3 (04:10→20:00)
[2019-10-24 05:08] LABS: Hematocrit 26.1 % (37.5-50.1); Hemoglobin 8.6 g/dL (12.9-16.9); Mean Corpuscular Hemoglobin 31.5 pg (28.0-33.3); Mean Corpuscular Volume 95.6 fL (83.0-100.0); Mean Platelet Volume 11.3 fL (9.4-12.4); Platelet Count 168 K/mcL (140-400); Red Blood Count 2.73 M/mcL (4.19-5.50); Red Cell Distribution Width 14.6 % (11.5-14.5); White Blood Count 11.9 K/mcL (4.3-11.1)
[2019-10-24 05:19] LABS: ABG Base Excess 3 mEq/L (-2 to 3); ABG HCO3 27 mEq/L (21-27); ABG Oxygen Saturation 96 % (95-98); ABG PCO2 37 mmHg (35-45); ABG PH 7.47 pH Units (7.32-7.45); ABG PO2 80 mmHg (85-104); ABG TCO2 28 mEq/L (20-26); Blood Gas Modality VC; Blood Gas VT 500 cc
[2019-10-24 05:26] LABS: BUN/Creatinine Ratio 24 (6-26); Blood Urea Nitrogen 34 mg/dL (8-23); Calcium 7.9 mg/dL (8.6-10.3); Carbon Dioxide 28 mEq/L (23-29); Chloride 102 mEq/L (98-107); Glucose 133 mg/dL (70-105); Magnesium 2.4 mg/dL (1.6-2.6); Osmolality,Calculated 290 (280-300); Phosphorous 2.7 mg/dL (2.7-4.5); Potassium 4.3 mEq/L (3.5-5.1); Sodium 135 mEq/L (136-145); eGFR For African Americans > 60 (> 60); eGFR For Non-African Americans 51 (> 60)
[2019-10-24 05:27] LABS: Albumin 2.9 g/dL (3.5-5.7); Albumin/Globulin Ratio 1.2 (1.1-2.2); Bilirubin,Direct 2.8 mg/dL (0.0-0.2); Bilirubin,Indirect 1.5 mg/dL (0.0-1.0); Bilirubin,Total 4.3 mg/dL (0.3-1.0); Globulin 2.4 g/dL (2.4-3.5); Total Protein 5.3 g/dL (6.4-8.9)
[2019-10-24] MEDS: Insulin LISPRO 300 UNITS/3 ML VIAL SQ SCH ×5 (05:27→20:01)
[2019-10-24] MEDS: *HR* Metoprolol 5 MG/5 ML VIAL IVP SCH ×3 (06:00→17:05)
[2019-10-24] MEDS: *HR* Heparin 5,000 UNIT/ML VIAL SQ SCH ×2 (06:20→18:08)
[2019-10-24] MEDS: Micafungin 100 MG in 0.9 % Sodium Chloride Mini Bag 100 ML IVPB SCH (08:24)
[2019-10-24] MEDS: Chlorhexidine Rinse 15 ML MOUTHWASH MM SCH ×2 (08:25→20:00)
[2019-10-24] MEDS ORDERED: 0.9 % Sodium Chloride 250 ML IVC PRN (08:47)
[2019-10-24] MEDS ORDERED: Albumin 25% 25gram/100mL 25 GM/100 ML IV.SOLN IVPB PRN (08:47)
[2019-10-24] MEDS: Lacri-Lube 3.5 GM TUBE OP SCH ×2 (08:53→20:01)
[2019-10-24] MEDS ORDERED: 0.9 % Sodium Chloride 1,000 ML PRIME SCH (09:00)
[2019-10-24 11:00] LABS: Hepatitis B Surface Antibody < 3.10 mIU/mL
[2019-10-24 11:11] LABS: Hepatitis B Surface Antigen Nonreactive (Nonreactive)
[2019-10-24] MEDS: Phenylephrine 50 MG in 0.9 % Sodium Chloride 250 ML IVC SCH (11:25)
[2019-10-24] MEDS ORDERED: 0.9 % Sodium Chloride 2,000 ML ONE (15:31)
[2019-10-24] MEDS ORDERED: *HR* Heparin 10,000 UNIT/10 ML VIAL ONE (15:42)
[2019-10-24] MEDS: MVI IVC SCH (15:56)
[2019-10-24] MEDS: CLINIMIX IVC SCH (15:56)
[2019-10-24] MEDS: PARENTERAL AMINO ACID 10% IVC SCH (15:56)
[2019-10-24] MEDS: [UNRECOGNIZED DRUG - OTHER] IVC SCH (15:56)
[2019-10-24] MEDS ORDERED: *HR* Heparin 10,000 UNIT/10 ML VIAL IV PRN (18:14)
[2019-10-25] MEDS: Levalbuterol Neb 1.25 MG/3 ML IH SCH ×7 (00:16→23:02)
[2019-10-25] MEDS: Norepinephrine 8 MG in 0.9 % Sodium Chloride 250 ML IVC SCH (00:28)
[2019-10-25] MEDS: Insulin LISPRO 300 UNITS/3 ML VIAL SQ SCH ×5 (00:28→20:05)
[2019-10-25] MEDS: *HR* Metoprolol 5 MG/5 ML VIAL IVP SCH ×6 (00:37→23:02)
[2019-10-25] MEDS: Dexmedetomidine HCl 400 MCG/100 ML MLS IVC SCH ×6 (01:32→23:02)
[2019-10-25 04:22] LABS: ABG Base Excess 10 mEq/L (-2 to 3); ABG HCO3 34 mEq/L (21-27); ABG Oxygen Saturation 97 % (95-98); ABG PCO2 43 mmHg (35-45); ABG PH 7.51 pH Units (7.32-7.45); ABG PO2 81 mmHg (85-104); ABG TCO2 36 mEq/L (20-26); Blood Gas Modality ASSIST CONTROL; Blood Gas VT 450 cc
[2019-10-25 05:00] LABS: Hematocrit 27.4 % (37.5-50.1); Hemoglobin 9.3 g/dL (12.9-16.9); Mean Corpuscular HGB Conc 33.9 g/dL (31.6-35.5); Mean Corpuscular Hemoglobin 32.4 pg (28.0-33.3); Mean Corpuscular Volume 95.5 fL (83.0-100.0); Mean Platelet Volume 11.3 fL (9.4-12.4); Platelet Count 194 K/mcL (140-400); Red Blood Count 2.87 M/mcL (4.19-5.50); Red Cell Distribution Width 14.6 % (11.5-14.5); White Blood Count 15.8 K/mcL (4.3-11.1)
[2019-10-25] MEDS: Piperacillin/Tazobactam 3.375 GM in 0.9 % Sodium Chloride Mini Bag 100 ML IVPB SCH ×3 (05:00→20:03)
[2019-10-25 05:16] LABS: Calcium 8.4 mg/dL (8.6-10.3); Magnesium 2.4 mg/dL (1.6-2.6); Phosphorous 3.9 mg/dL (2.7-4.5); Potassium 4.2 mEq/L (3.5-5.1)
[2019-10-25] MEDS: *HR* Heparin 5,000 UNIT/ML VIAL SQ SCH ×2 (06:11→18:15)
[2019-10-25 06:19] LABS: Eosinophils # 0.3 K/mcL (0.0-0.6); Lymphocytes # 1.6 K/mcL (0.6-4.6); Neutrophils # 12.6 K/mcL (1.6-8.9); Platelet Estimate Normal (Normal)
[2019-10-25] MEDS ORDERED: Albumin 25% 25gram/100mL 25 GM/100 ML IV.SOLN IVPB PRN (07:22)
[2019-10-25] MEDS ORDERED: 0.9 % Sodium Chloride 250 ML IVC PRN ×2 (07:22→07:40)
[2019-10-25] MEDS ORDERED: *HR* Heparin 10,000 UNIT/10 ML VIAL IV PRN (07:40)
[2019-10-25] MEDS: Lacri-Lube 3.5 GM TUBE OP SCH ×2 (08:58→20:05)
[2019-10-25] MEDS: Chlorhexidine Rinse 15 ML MOUTHWASH MM SCH ×2 (08:58→20:04)
[2019-10-25] MEDS: Norepinephrine 4 MG in 0.9 % Sodium Chloride 250 ML IVC SCH (16:38)
[2019-10-25] MEDS ORDERED: CLINIMIX IVC SCH (17:00)
[2019-10-25] MEDS ORDERED: MVI IVC SCH (17:00)
[2019-10-25] MEDS ORDERED: PARENTERAL AMINO ACID 10% IVC SCH (17:00)
[2019-10-25] MEDS ORDERED: [UNRECOGNIZED DRUG - OTHER] IVC SCH (17:00)
[2019-10-25] MEDS: PARENTERAL AMINO ACID 10% IVC SCH (20:04)
[2019-10-25] MEDS: CLINIMIX IVC SCH (20:04)
[2019-10-25] MEDS: [UNRECOGNIZED DRUG - OTHER] IVC SCH (20:04)
[2019-10-25] MEDS: *HR* Metoprolol 5 MG/5 ML VIAL IVP PRN (20:04)
[2019-10-25] MEDS: MVI IVC SCH (20:04)
[2019-10-26] MEDS: Insulin LISPRO 300 UNITS/3 ML VIAL SQ SCH ×6 (01:21→19:32)
[2019-10-26] MEDS: Dexmedetomidine HCl 400 MCG/100 ML MLS IVC SCH ×2 (03:02→06:41)
[2019-10-26] MEDS: Piperacillin/Tazobactam 3.375 GM in 0.9 % Sodium Chloride Mini Bag 100 ML IVPB SCH ×3 (03:31→19:32)
[2019-10-26] MEDS: Levalbuterol Neb 1.25 MG/3 ML IH SCH ×6 (03:36→23:24)
[2019-10-26 03:38] LABS: Hematocrit 27.3 % (37.5-50.1); Mean Corpuscular Hemoglobin 31.7 pg (28.0-33.3); Mean Corpuscular Volume 96.1 fL (83.0-100.0); Platelet Count 228 K/mcL (140-400); Red Blood Count 2.84 M/mcL (4.19-5.50); Red Cell Distribution Width 14.9 % (11.5-14.5); White Blood Count 16.4 K/mcL (4.3-11.1)
[2019-10-26 03:56] LABS: Calcium 8.2 mg/dL (8.6-10.3); Magnesium 2.3 mg/dL (1.6-2.6); Monocytes # 0.7 K/mcL (0.0-1.3); Neutrophils # 14.8 K/mcL (1.6-8.9); Phosphorous 4.1 mg/dL (2.7-4.5); Platelet Estimate Normal (Normal); Potassium 4.2 mEq/L (3.5-5.1)
[2019-10-26 04:22] LABS: ABG Base Excess 4 mEq/L (-2 to 3); ABG HCO3 29 mEq/L (21-27); ABG Oxygen Saturation 97 % (95-98); ABG PCO2 41 mmHg (35-45); ABG PH 7.45 pH Units (7.32-7.45); ABG PO2 82 mmHg (85-104); ABG TCO2 30 mEq/L (20-26); Blood Gas Modality ASSIST CONTROL; Blood Gas VT 450 cc
[2019-10-26] MEDS: *HR* Metoprolol 5 MG/5 ML VIAL IVP SCH (05:31)
[2019-10-26] MEDS: *HR* Heparin 5,000 UNIT/ML VIAL SQ SCH ×2 (05:31→16:45)
[2019-10-26] MEDS: Chlorhexidine Rinse 15 ML MOUTHWASH MM SCH ×2 (08:45→19:33)
[2019-10-26] MEDS: Lacri-Lube 3.5 GM TUBE OP SCH ×2 (08:46→19:33)
[2019-10-26] MEDS ORDERED: 0.9 % Sodium Chloride 250 ML IVC PRN (09:15)
[2019-10-26] MEDS ORDERED: *HR* Heparin 10,000 UNIT/10 ML VIAL IV PRN (10:42)
[2019-10-26] MEDS ORDERED: Albumin 25% 25gram/100mL 25 GM/100 ML IV.SOLN IVPB PRN (11:50)
[2019-10-26] MEDS: *HR* Metoprolol 5 MG/5 ML VIAL IVP PRN (14:22)
[2019-10-26] MEDS ORDERED: MVI IVC SCH (17:00)
[2019-10-26] MEDS ORDERED: CLINIMIX IVC SCH (17:00)
[2019-10-26] MEDS ORDERED: [UNRECOGNIZED DRUG - OTHER] IVC SCH (17:00)
[2019-10-26] MEDS ORDERED: PARENTERAL AMINO ACID 10% IVC SCH (17:00)
[2019-10-26] MEDS: Norepinephrine 4 MG in 0.9 % Sodium Chloride 250 ML IVC SCH (19:21)
[2019-10-27] MEDS: Insulin LISPRO 300 UNITS/3 ML VIAL SQ SCH ×7 (00:02→23:40)
[2019-10-27] MEDS: Dexmedetomidine HCl 400 MCG/100 ML MLS IVC SCH ×6 (00:03→23:41)
[2019-10-27 03:42] LABS: Hematocrit 26.4 % (37.5-50.1); Hemoglobin 8.6 g/dL (12.9-16.9); Mean Corpuscular HGB Conc 32.6 g/dL (31.6-35.5); Mean Corpuscular Hemoglobin 31.6 pg (28.0-33.3); Mean Corpuscular Volume 97.1 fL (83.0-100.0); Mean Platelet Volume 10.2 fL (9.4-12.4); Platelet Count 223 K/mcL (140-400); Red Blood Count 2.72 M/mcL (4.19-5.50); Red Cell Distribution Width 15.2 % (11.5-14.5); White Blood Count 14.3 K/mcL (4.3-11.1)
[2019-10-27] MEDS: Piperacillin/Tazobactam 3.375 GM in 0.9 % Sodium Chloride Mini Bag 100 ML IVPB SCH ×3 (03:42→20:42)
[2019-10-27] MEDS: Levalbuterol Neb 1.25 MG/3 ML IH SCH ×6 (03:48→23:35)
[2019-10-27 04:05] LABS: Calcium 8.8 mg/dL (8.6-10.3); Magnesium 2.1 mg/dL (1.6-2.6); Phosphorous 3.8 mg/dL (2.7-4.5); Potassium 3.8 mEq/L (3.5-5.1)
[2019-10-27 04:28] LABS: Lymphocytes # 1.4 K/mcL (0.6-4.6); Monocytes # 0.9 K/mcL (0.0-1.3); Neutrophils # 11.7 K/mcL (1.6-8.9)
[2019-10-27 04:29] LABS: Anisocytosis 1+ (Not Present); Hypochromasia Present (Not Present); Macrocytosis Present (Not Present); Platelet Estimate Normal (Normal)
[2019-10-27] MEDS: *HR* Heparin 5,000 UNIT/ML VIAL SQ SCH ×2 (05:29→17:17)
[2019-10-27] MEDS: Lacri-Lube 3.5 GM TUBE OP SCH (08:32)
[2019-10-27] MEDS: Chlorhexidine Rinse 15 ML MOUTHWASH MM SCH (08:38)
[2019-10-27] MEDS: Norepinephrine 4 MG in 0.9 % Sodium Chloride 250 ML IVC SCH (11:07)
[2019-10-27] MEDS ORDERED: E-Z-HD (BARIUM SULF) SUSPENSION PO ONE (14:35)
[2019-10-27] MEDS ORDERED: E-Z-PAQUE (BARIUM SULF) SUSP 1 BOTTLE PO ONE (14:35)
[2019-10-27] MEDS ORDERED: MVI IVC SCH (17:00)
[2019-10-27] MEDS ORDERED: CLINIMIX IVC SCH (17:00)
[2019-10-27] MEDS ORDERED: PARENTERAL AMINO ACID 10% IVC SCH (17:00)
[2019-10-27] MEDS ORDERED: [UNRECOGNIZED DRUG - OTHER] IVC SCH (17:00)
[2019-10-27] MEDS ORDERED: Haloperidol Lactate 5 MG/ML VIAL IM ONE (21:00)
[2019-10-28] MEDS: Levalbuterol Neb 1.25 MG/3 ML IH SCH ×6 (03:38→23:55)
[2019-10-28 03:43] LABS: Basophils # 0.1 K/mcL (0.0-0.2); Basophils % 0.4 %; Eosinophils # 0.3 K/mcL (0.0-0.6); Eosinophils % 2.3 %; Hematocrit 25.5 % (37.5-50.1); Hemoglobin 8.4 g/dL (12.9-16.9); Immature Granulocytes % 4.7 % (0-4); Lymphocytes # 1.1 K/mcL (0.6-4.6); Lymphocytes % 9.5 %; Mean Corpuscular HGB Conc 32.9 g/dL (31.6-35.5); Mean Corpuscular Hemoglobin 32.1 pg (28.0-33.3); Mean Corpuscular Volume 97.3 fL (83.0-100.0); Mean Platelet Volume 11.1 fL (9.4-12.4); Monocytes # 1.3 K/mcL (0.0-1.3); Monocytes % 11.2 %; Neutrophils # 8.2 K/mcL (1.6-8.9); Platelet Count 266 K/mcL (140-400); Red Blood Count 2.62 M/mcL (4.19-5.50); Segmented Neutrophils % 71.9 %; White Blood Count 11.4 K/mcL (4.3-11.1)
[2019-10-28 04:01] LABS: Calcium 8.4 mg/dL (8.6-10.3); Magnesium 2.1 mg/dL (1.6-2.6); Phosphorous 3.7 mg/dL (2.7-4.5); Potassium 3.5 mEq/L (3.5-5.1)
[2019-10-28] MEDS: Piperacillin/Tazobactam 3.375 GM in 0.9 % Sodium Chloride Mini Bag 100 ML IVPB SCH ×3 (04:01→20:44)
[2019-10-28] MEDS: Insulin LISPRO 300 UNITS/3 ML VIAL SQ SCH ×6 (04:02→23:41)
[2019-10-28] MEDS: Dexmedetomidine HCl 400 MCG/100 ML MLS IVC SCH (04:38)
[2019-10-28] MEDS: *HR* Heparin 5,000 UNIT/ML VIAL SQ SCH (05:38)
[2019-10-28] MEDS ORDERED: Aminoglycoside Consult 1 EACH MC ONE (08:14)
[2019-10-28] MEDS ORDERED: *HR* Heparin 5,000 UNIT/ML VIAL IVP PRN ×2 (11:04)
[2019-10-28] MEDS: Heparin 25,000 UNIT/250 ML D5W 25,000 UNIT/250 ML IV.SOLN IVC SCH ×2 (12:07→21:00)
[2019-10-28] MEDS ORDERED: 0.9 % Sodium Chloride 500 ML IVC ONE (12:32)
[2019-10-28 12:44] LABS: Heparin anti-factor XA UFH 0.15 IU/mL (0.30-0.70); INR 1.3; Prothrombin Time 15.2 Seconds (9.4-12.1)
[2019-10-28 12:46] LABS: Activated Partial Thrombo Time 37.5 Seconds (26.0-36.0)
[2019-10-28] MEDS: *HR* Metoprolol 5 MG/5 ML VIAL IVP PRN ×2 (12:47→16:07)
[2019-10-28] MEDS ORDERED: *HR* Metoprolol 5 MG/5 ML VIAL IVP PRN (16:09)
[2019-10-28] MEDS ORDERED: Clinimix E 5%-15% SOLUTION 2,000 ML with MVI, adult with vitamin K 10 ML IVC SCH (17:00)
[2019-10-28 17:17] LABS: Hematocrit 27.4 % (37.5-50.1); Hemoglobin 8.8 g/dL (12.9-16.9)
[2019-10-28 17:21] LABS: ABG Base Excess 2 mEq/L (-2 to 3); ABG HCO3 25 mEq/L (21-27); ABG Oxygen Saturation 98 % (95-98); ABG PCO2 32 mmHg (35-45); ABG PO2 97 mmHg (85-104); ABG TCO2 26 mEq/L (20-26)
[2019-10-28] MEDS ORDERED: Amiodarone Premix 360 MG/200 ML BAG IVC ONE ×2 (17:25)
[2019-10-28 17:29] LABS: Albumin 2.7 g/dL (3.5-5.7); Albumin/Globulin Ratio 0.8 (1.1-2.2); Bilirubin,Direct 2.5 mg/dL (0.0-0.2); Bilirubin,Indirect 1.2 mg/dL (0.0-1.0); Bilirubin,Total 3.7 mg/dL (0.3-1.0); Calcium 8.5 mg/dL (8.6-10.3); Globulin 3.4 g/dL (2.4-3.5); Magnesium 2.2 mg/dL (1.6-2.6); Potassium 3.4 mEq/L (3.5-5.1); Total Protein 6.1 g/dL (6.4-8.9)
[2019-10-28] MEDS ORDERED: Amiodarone 300 MG in D5% in Water 100 ML IVPB ONE (18:30)
[2019-10-28] MEDS ORDERED: Perflutren Lipid Microsphere 1.3 ML in 0.9 % Sodium Chloride 8.7 ML IVP ONE (19:45)
[2019-10-28] MEDS: Amiodarone Premix 360 MG/200 ML BAG IVC SCH (22:47)
[2019-10-29] MEDS: Levalbuterol Neb 1.25 MG/3 ML IH SCH ×2 (03:33→07:27)
[2019-10-29 04:08] LABS: Basophils # 0.1 K/mcL (0.0-0.2); Basophils % 0.7 %; Eosinophils # 0.1 K/mcL (0.0-0.6); Eosinophils % 0.8 %; Hematocrit 26.1 % (37.5-50.1); Hemoglobin 8.6 g/dL (12.9-16.9); Immature Granulocytes % 4.5 % (0-4); Lymphocytes # 1.3 K/mcL (0.6-4.6); Lymphocytes % 8.5 %; Mean Corpuscular Hemoglobin 32.1 pg (28.0-33.3); Mean Corpuscular Volume 97.4 fL (83.0-100.0); Mean Platelet Volume 10.8 fL (9.4-12.4); Monocytes # 1.7 K/mcL (0.0-1.3); Monocytes % 10.9 %; Neutrophils # 11.6 K/mcL (1.6-8.9); Platelet Count 349 K/mcL (140-400); Red Blood Count 2.68 M/mcL (4.19-5.50); Red Cell Distribution Width 15.6 % (11.5-14.5); Segmented Neutrophils % 74.6 %; White Blood Count 15.6 K/mcL (4.3-11.1)
[2019-10-29 04:29] LABS: Albumin 2.7 g/dL (3.5-5.7); Albumin/Globulin Ratio 0.8 (1.1-2.2); Bilirubin,Direct 1.6 mg/dL (0.0-0.2); Bilirubin,Indirect 0.9 mg/dL (0.0-1.0); Bilirubin,Total 2.5 mg/dL (0.3-1.0); Calcium 8.5 mg/dL (8.6-10.3); Globulin 3.2 g/dL (2.4-3.5); Magnesium 2.1 mg/dL (1.6-2.6); Phosphorous 3.4 mg/dL (2.7-4.5); Potassium 3.4 mEq/L (3.5-5.1); Total Protein 5.9 g/dL (6.4-8.9)
[2019-10-29] MEDS: Insulin LISPRO 300 UNITS/3 ML VIAL SQ SCH ×6 (04:32→23:40)
[2019-10-29] MEDS ORDERED: Levalbuterol Neb 1.25 MG/3 ML IH PRN (08:19)
[2019-10-29] MEDS: Heparin 25,000 UNIT/250 ML D5W 25,000 UNIT/250 ML IV.SOLN IVC SCH ×2 (08:27→18:18)
[2019-10-29] MEDS ORDERED: Potassium Chloride 40 MEQ, Lidocaine 1% 2 ML in 0.9 % Sodium Chloride 500 ML IVPB ONE (08:52)
[2019-10-29] MEDS: Amiodarone Premix 360 MG/200 ML BAG IVC SCH ×2 (10:49→22:33)
[2019-10-29] MEDS: Piperacillin/Tazobactam 3.375 GM in 0.9 % Sodium Chloride Mini Bag 100 ML IVPB SCH ×2 (12:22→20:06)
[2019-10-29] MEDS ORDERED: Clinimix E 5%-15% SOLUTION 2,000 ML with MVI, adult with vitamin K 10 ML IVC SCH (17:00)
[2019-10-30 04:45] LABS: Basophils # 0.1 K/mcL (0.0-0.2); Basophils % 0.6 %; Eosinophils # 0.2 K/mcL (0.0-0.6); Eosinophils % 1.1 %; Hematocrit 26.1 % (37.5-50.1); Hemoglobin 8.3 g/dL (12.9-16.9); Immature Granulocytes % 3.2 % (0-4); Lymphocytes # 1.3 K/mcL (0.6-4.6); Lymphocytes % 9.6 %; Mean Corpuscular HGB Conc 31.8 g/dL (31.6-35.5); Mean Corpuscular Hemoglobin 31.2 pg (28.0-33.3); Mean Corpuscular Volume 98.1 fL (83.0-100.0); Mean Platelet Volume 10.9 fL (9.4-12.4); Monocytes # 1.5 K/mcL (0.0-1.3); Monocytes % 10.7 %; Neutrophils # 10.5 K/mcL (1.6-8.9); Platelet Count 350 K/mcL (140-400); Red Blood Count 2.66 M/mcL (4.19-5.50); Red Cell Distribution Width 15.9 % (11.5-14.5); Segmented Neutrophils % 74.8 %
[2019-10-30 05:05] LABS: Albumin 2.7 g/dL (3.5-5.7); Albumin/Globulin Ratio 0.8 (1.1-2.2); Bilirubin,Total 1.7 mg/dL (0.3-1.0); Calcium 8.5 mg/dL (8.6-10.3); Globulin 3.4 g/dL (2.4-3.5); Potassium 3.2 mEq/L (3.5-5.1); Total Protein 6.1 g/dL (6.4-8.9)
[2019-10-30] MEDS: Insulin LISPRO 300 UNITS/3 ML VIAL SQ SCH ×5 (05:07→21:41)
[2019-10-30] MEDS: Piperacillin/Tazobactam 3.375 GM in 0.9 % Sodium Chloride Mini Bag 100 ML IVPB SCH ×3 (05:07→20:16)
[2019-10-30 05:47] LABS: Magnesium 2.1 mg/dL (1.6-2.6); Phosphorous 3.8 mg/dL (2.7-4.5)
[2019-10-30] MEDS: Heparin 25,000 UNIT/250 ML D5W 25,000 UNIT/250 ML IV.SOLN IVC SCH ×2 (08:14→21:41)
[2019-10-30] MEDS: Dexmedetomidine HCl 400 MCG/100 ML MLS IVC SCH (08:14)
[2019-10-30] MEDS ORDERED: *HR* Rivaroxaban 10 MG TABLET PO SCH (17:00)
[2019-10-30] MEDS ORDERED: Clinimix E 5%-15% SOLUTION 2,000 ML with MVI, adult with vitamin K 10 ML IVC SCH (17:00)
[2019-10-31] MEDS: Insulin LISPRO 300 UNITS/3 ML VIAL SQ SCH ×3 (00:26→08:46)
[2019-10-31] MEDS: Piperacillin/Tazobactam 3.375 GM in 0.9 % Sodium Chloride Mini Bag 100 ML IVPB SCH ×3 (03:55→20:09)
[2019-10-31 03:59] LABS: Basophils # 0.1 K/mcL (0.0-0.2); Basophils % 0.8 %; Eosinophils # 0.2 K/mcL (0.0-0.6); Eosinophils % 2.1 %; Hematocrit 25.6 % (37.5-50.1); Immature Granulocytes % 2.5 % (0-4); Lymphocytes # 1.1 K/mcL (0.6-4.6); Lymphocytes % 9.7 %; Mean Corpuscular HGB Conc 31.3 g/dL (31.6-35.5); Mean Corpuscular Hemoglobin 30.9 pg (28.0-33.3); Mean Corpuscular Volume 98.8 fL (83.0-100.0); Mean Platelet Volume 10.7 fL (9.4-12.4); Monocytes # 1.1 K/mcL (0.0-1.3); Monocytes % 9.5 %; Neutrophils # 8.6 K/mcL (1.6-8.9); Platelet Count 369 K/mcL (140-400); Red Blood Count 2.59 M/mcL (4.19-5.50); Red Cell Distribution Width 16.1 % (11.5-14.5); Segmented Neutrophils % 75.4 %; White Blood Count 11.4 K/mcL (4.3-11.1)
[2019-10-31 04:21] LABS: Albumin 2.6 g/dL (3.5-5.7); Albumin/Globulin Ratio 0.8 (1.1-2.2); Bilirubin,Total 1.8 mg/dL (0.3-1.0); Calcium 8.3 mg/dL (8.6-10.3); Globulin 3.3 g/dL (2.4-3.5); Magnesium 1.9 mg/dL (1.6-2.6); Phosphorous 4.1 mg/dL (2.7-4.5); Potassium 3.5 mEq/L (3.5-5.1); Total Protein 5.9 g/dL (6.4-8.9)
[2019-10-31] MEDS ORDERED: Furosemide 40 MG/4 ML VIAL IVP ONE (08:52)
[2019-10-31] MEDS ORDERED: DilTIAZem CD (24hr) 240 MG CAP.ER.24H PO SCH (09:00)
[2019-10-31] MEDS ORDERED: *HR* Metoprolol 5 MG/5 ML VIAL IVP PRN (09:41)
[2019-10-31] MEDS ORDERED: Levalbuterol Neb 1.25 MG/3 ML IH PRN (09:41)
[2019-10-31] MEDS ORDERED: *HR* Alteplase (Cathflo) 2 MG VIAL IVP PRN (09:41)
[2019-10-31] MEDS ORDERED: Naloxone 0.4 MG/ML INJ IVP PRN (09:41)
[2019-10-31] MEDS ORDERED: *HR* Promethazine 25 MG/ML VIAL IVP PRN (09:41)
[2019-10-31] MEDS ORDERED: *HR* Dextrose 50 % in Water (Syg) 50 ML SYRINGE IVP PRN (09:41)
[2019-10-31] MEDS ORDERED: Dextrose Gel 15 GM/37.5 ML TUBE PO PRN ×2 (09:41)
[2019-10-31] MEDS ORDERED: D5% in Water 1,000 ML IVC PRN (09:41)
[2019-10-31] MEDS ORDERED: D10% in Water 500 ML IVC PRN (09:41)
[2019-10-31] MEDS: *HR* Rivaroxaban 10 MG TABLET PO SCH (16:29)
[2019-11-01] MEDS: Piperacillin/Tazobactam 3.375 GM in 0.9 % Sodium Chloride Mini Bag 100 ML IVPB SCH ×2 (04:24→11:26)
[2019-11-01] MEDS: DilTIAZem CD (24hr) 240 MG CAP.ER.24H PO SCH (07:20)
[2019-11-01 08:55] LABS: Hematocrit 26.3 % (37.5-50.1); Hemoglobin 8.3 g/dL (12.9-16.9); Mean Corpuscular HGB Conc 31.6 g/dL (31.6-35.5); Mean Corpuscular Hemoglobin 30.7 pg (28.0-33.3); Mean Corpuscular Volume 97.4 fL (83.0-100.0); Mean Platelet Volume 10.4 fL (9.4-12.4); Platelet Count 412 K/mcL (140-400); White Blood Count 10.4 K/mcL (4.3-11.1)
[2019-11-01 09:13] LABS: Albumin 2.7 g/dL (3.5-5.7); Albumin/Globulin Ratio 0.8 (1.1-2.2); Bilirubin,Direct 1.1 mg/dL (0.0-0.2); Bilirubin,Indirect 1.1 mg/dL (0.0-1.0); Bilirubin,Total 2.2 mg/dL (0.3-1.0); Calcium 8.1 mg/dL (8.6-10.3); Globulin 3.5 g/dL (2.4-3.5); Magnesium 1.8 mg/dL (1.6-2.6); Potassium 3.3 mEq/L (3.5-5.1); Total Protein 6.2 g/dL (6.4-8.9)
[2019-11-01] MEDS: Furosemide 20 MG/2 ML VIAL IVP SCH ×2 (11:55→16:21)
[2019-11-01] MEDS: *HR* Rivaroxaban 10 MG TABLET PO SCH (16:20)
[2019-11-02 03:30] LABS: Hematocrit 23.9 % (37.5-50.1); Hemoglobin 7.8 g/dL (12.9-16.9); Mean Corpuscular HGB Conc 32.6 g/dL (31.6-35.5); Mean Corpuscular Hemoglobin 31.7 pg (28.0-33.3); Mean Corpuscular Volume 97.2 fL (83.0-100.0); Mean Platelet Volume 10.3 fL (9.4-12.4); Platelet Count 410 K/mcL (140-400); Red Blood Count 2.46 M/mcL (4.19-5.50); Red Cell Distribution Width 16.1 % (11.5-14.5); White Blood Count 9.8 K/mcL (4.3-11.1)
[2019-11-02 03:50] LABS: Albumin 2.6 g/dL (3.5-5.7); Albumin/Globulin Ratio 0.8 (1.1-2.2); Bilirubin,Indirect 0.9 mg/dL (0.0-1.0); Bilirubin,Total 1.9 mg/dL (0.3-1.0); Calcium 7.9 mg/dL (8.6-10.3); Globulin 3.3 g/dL (2.4-3.5); Magnesium 1.7 mg/dL (1.6-2.6); Potassium 3.2 mEq/L (3.5-5.1); Total Protein 5.9 g/dL (6.4-8.9)
[2019-11-02] MEDS: Furosemide 20 MG/2 ML VIAL IVP SCH (08:08)
[2019-11-02] MEDS: DilTIAZem CD (24hr) 240 MG CAP.ER.24H PO SCH (08:08)
[2019-11-02] MEDS: *HR* Rivaroxaban 10 MG TABLET PO SCH (18:31)
[2019-11-03 04:38] LABS: Hematocrit 25.5 % (37.5-50.1); Mean Corpuscular HGB Conc 31.4 g/dL (31.6-35.5); Mean Corpuscular Hemoglobin 31.6 pg (28.0-33.3); Mean Corpuscular Volume 100.8 fL (83.0-100.0); Platelet Count 427 K/mcL (140-400); Red Blood Count 2.53 M/mcL (4.19-5.50); Red Cell Distribution Width 16.2 % (11.5-14.5); White Blood Count 10.8 K/mcL (4.3-11.1)
[2019-11-03 04:58] LABS: Alanine Aminotransferase 79 Units/L (7-52); Albumin 2.7 g/dL (3.5-5.7); Albumin/Globulin Ratio 0.8 (1.1-2.2); Alkaline Phosphatase 261 Units/L (34-104); Aspartate Amino Transferase 76 Units/L (13-39); BUN/Creatinine Ratio 30 (6-26); Bilirubin,Direct 0.8 mg/dL (0.0-0.2); Bilirubin,Indirect 0.9 mg/dL (0.0-1.0); Bilirubin,Total 1.7 mg/dL (0.3-1.0); Blood Urea Nitrogen 41 mg/dL (8-23); Calcium 8.2 mg/dL (8.6-10.3); Carbon Dioxide 24 mEq/L (23-29); Chloride 107 mEq/L (98-107); Globulin 3.3 g/dL (2.4-3.5); Glucose 102 mg/dL (70-105); Magnesium 1.8 mg/dL (1.6-2.6); Osmolality,Calculated 298 (280-300); Potassium 3.7 mEq/L (3.5-5.1); Sodium 139 mEq/L (136-145); eGFR For African Americans > 60 (> 60); eGFR For Non-African Americans 52 (> 60)
[2019-11-03 05:00] LABS: % Iron Saturation 20 % (20-55); Iron 50 mcg/dL (65-175); Transferrin 180 mg/dL (203-362)
[2019-11-03 05:18] LABS: Ferritin 802 ng/mL (20-250)
[2019-11-03 05:23] LABS: Folate 9.8 ng/mL (3.0-16.0)
[2019-11-03 05:31] LABS: Vitamin B12 > 1500 pg/mL (250-1100)
[2019-11-03] MEDS ORDERED: Furosemide 40 MG TABLET PO SCH (09:00)
[2019-11-03] MEDS: DilTIAZem CD (24hr) 240 MG CAP.ER.24H PO SCH (09:51)
[2019-11-03 14:48] VITALS: BP 111/73
== END 2019-11-03 15:26 | DRG 853 ==
LOC: EMEROOARM 08:46 → 2NNU 14:40 → SUATTDRO 14:40 → 2NNU 15:24 → ICNU 10-16 22:44 → 3ANU 10-31 13:44
PROVIDERS: ADMIT Internal Medicine; ATTEND Pharmacist
PROC: IRPERMA (2019-10-18 10:00)

== ENCOUNTER 2021-08-06 07:27 | Inpatient (IN) ==
[2021-08-06 08:15] LABS: Basophils # 0.1 K/mcL (0.0-0.2); Basophils % 0.6 %; Eosinophils % 0.2 %; Hematocrit 38.4 % (37.5-50.1); Hemoglobin 11.4 g/dL (12.9-16.9); Immature Granulocytes % 3.4 % (0-4); Lymphocytes # 1.2 K/mcL (0.6-4.6); Lymphocytes % 11.2 %; Mean Corpuscular HGB Conc 29.7 g/dL (31.6-35.5); Mean Corpuscular Hemoglobin 21.7 pg (28.0-33.3); Mean Corpuscular Volume 73.1 fL (83.0-100.0); Mean Platelet Volume 10.3 fL (9.4-12.4); Monocytes # 0.7 K/mcL (0.0-1.3); Monocytes % 6.7 %; Neutrophils # 8.3 K/mcL (1.6-8.9); Nucleated Red Blood Cells 0.4 /100 WBC (0); Platelet Count 401 K/mcL (140-400); Red Blood Count 5.25 M/mcL (4.19-5.50); Red Cell Distribution Width 21.8 % (11.5-14.5); Segmented Neutrophils % 77.9 %; White Blood Count 10.7 K/mcL (4.3-11.1)
[2021-08-06] MEDS ORDERED: cefTRIAXone 1,000 MG in 0.9 % Sodium Chloride Mini Bag 100 ML IVPB ONE (08:17)
[2021-08-06 08:38] LABS: Alanine Aminotransferase 45 Units/L (7-52); Albumin 3.4 g/dL (3.5-5.7); Albumin/Globulin Ratio 0.8 (1.1-2.2); Alkaline Phosphatase 140 Units/L (34-104); Aspartate Amino Transferase 51 Units/L (13-39); BUN/Creatinine Ratio 24 (6-26); Bilirubin,Total 0.7 mg/dL (0.3-1.0); Blood Urea Nitrogen 32 mg/dL (8-23); Carbon Dioxide 27 mEq/L (23-29); Chloride 103 mEq/L (98-107); Globulin 4.4 g/dL (2.4-3.5); Glucose 101 mg/dL (70-105); Osmolality,Calculated 297 (280-300); Potassium 3.4 mEq/L (3.5-5.1); Sodium 140 mEq/L (136-145); Total Protein 7.8 g/dL (6.4-8.9); Troponin I < 0.03 ng/mL (< 0.04); eGFR For African Americans > 60 (> 60); eGFR For Non-African Americans 52 (> 60)
[2021-08-06] MEDS ORDERED: Naloxone 0.4 MG/ML INJ IVP PRN (10:33)
[2021-08-06] MEDS ORDERED: Remdesivir 200 MG in 0.9 % Sodium Chloride 100 ML IVPB ONE (10:33)
[2021-08-06] MEDS ORDERED: Furosemide 40 MG/4 ML VIAL IVP ONE (10:38)
[2021-08-06 11:23] LABS: Adenovirus Not Detected (Not Detect); Bordetella Pertussis Not Detected (Not Detect); Chlamydophila pneumoniae Not Detected (Not Detect); Coronavirus 229E Not Detected (Not Detect); Coronavirus HKU1 Not Detected (Not Detect); Coronavirus NL63 Not Detected (Not Detect); Coronavirus OC43 Not Detected (Not Detect); Human Metapneumovirus Not Detected (Not Detect); Human Rhinovirus/Enterovirus Not Detected (Not Detect); Influenza A Subtype 2009 H1 Not Detected (Not Detect); Influenza B Not Detected (Not Detect); Mycoplasma pneumoniae Not Detected (Not Detect); Parainfluenza Virus 1 Not Detected (Not Detect); Parainfluenza Virus 2 Not Detected (Not Detect); Parainfluenza Virus 3 Not Detected (Not Detect); Parainfluenza Virus 4 Not Detected (Not Detect); Respiratory Syncytial Virus Not Detected (Not Detect)
[2021-08-06 11:24] LABS: SARS-CoV-2 DETECTED (Not Detect)
[2021-08-06 13:17] LABS: C-Reactive Protein 99 mg/L (Less than 10)
[2021-08-06 14:49] LABS: Bilirubin,Urine Negative (Negative); Blood,Urine Negative (Negative); Clarity,Urine Clear (Clear); Color,Urine Colorless (Yellow); Glucose,Urine (UA) Normal (Normal); Ketones,Urine Negative (Negative); Leukocyte Esterase,Urine Negative (Negative); Nitrite,Urine Negative (Negative); Protein,Urine Negative (Neg-Trace); Urobilinogen,Urine Normal (Normal)
[2021-08-06] MEDS ORDERED: *HR* Metoprolol 5 MG/5 ML VIAL IVP PRN (15:46)
[2021-08-06] MEDS: Furosemide 40 MG/4 ML VIAL IVP SCH (16:22)
[2021-08-06] MEDS: *HR* Rivaroxaban 10 MG TABLET PO SCH (16:23)
[2021-08-07 06:17] LABS: Basophils % 0.3 %; Hematocrit 37.8 % (37.5-50.1); Hemoglobin 11.1 g/dL (12.9-16.9); Immature Granulocytes % 1.9 % (0-4); Lymphocytes # 0.8 K/mcL (0.6-4.6); Lymphocytes % 7.5 %; Mean Corpuscular HGB Conc 29.4 g/dL (31.6-35.5); Mean Corpuscular Hemoglobin 21.7 pg (28.0-33.3); Mean Platelet Volume 10.2 fL (9.4-12.4); Monocytes # 0.6 K/mcL (0.0-1.3); Monocytes % 5.2 %; Platelet Count 381 K/mcL (140-400); Red Blood Count 5.11 M/mcL (4.19-5.50); Red Cell Distribution Width 21.5 % (11.5-14.5); Segmented Neutrophils % 85.1 %; White Blood Count 10.6 K/mcL (4.3-11.1)
[2021-08-07 06:39] LABS: Alanine Aminotransferase 45 Units/L (7-52); Albumin 3.1 g/dL (3.5-5.7); Albumin/Globulin Ratio 0.8 (1.1-2.2); Alkaline Phosphatase 127 Units/L (34-104); Aspartate Amino Transferase 45 Units/L (13-39); BUN/Creatinine Ratio 29 (6-26); Bilirubin,Direct 0.2 mg/dL (0.0-0.2); Bilirubin,Indirect 0.4 mg/dL (0.0-1.0); Bilirubin,Total 0.6 mg/dL (0.3-1.0); Blood Urea Nitrogen 33 mg/dL (8-23); Calcium 8.8 mg/dL (8.6-10.3); Carbon Dioxide 30 mEq/L (23-29); Chloride 104 mEq/L (98-107); Glucose 120 mg/dL (70-105); Osmolality,Calculated 300 (280-300); Potassium 3.5 mEq/L (3.5-5.1); Sodium 141 mEq/L (136-145); Total Protein 7.1 g/dL (6.4-8.9); eGFR For African Americans > 60 (> 60); eGFR For Non-African Americans > 60 (> 60)
[2021-08-07] MEDS: Furosemide 40 MG/4 ML VIAL IVP SCH ×2 (07:44→16:34)
[2021-08-07] MEDS ORDERED: Pantoprazole 40 MG VIAL IVP SCH (09:00)
[2021-08-07] MEDS: Remdesivir 100 MG in 0.9 % Sodium Chloride 100 ML IVPB SCH (11:06)
[2021-08-07] MEDS ORDERED: TOCILIZUMAB 810 MG in 0.9 % Sodium Chloride 95.5 ML IVPB ONE (13:00)
[2021-08-07] MEDS: *HR* Rivaroxaban 10 MG TABLET PO SCH (16:36)
[2021-08-07] MEDS ORDERED: Budesonide/Formoterol 160/4.5 1 PUFF INH IH ONE (20:07)
[2021-08-07] MEDS: Budesonide/Formoterol 160/4.5 1 PUFF INH IH SCH (21:21)
[2021-08-08 00:57] LABS: Basophils % 0.1 %; Hematocrit 35.2 % (37.5-50.1); Hemoglobin 10.7 g/dL (12.9-16.9); Immature Granulocytes % 1.4 % (0-4); Lymphocytes # 0.7 K/mcL (0.6-4.6); Lymphocytes % 5.2 %; Mean Corpuscular HGB Conc 30.4 g/dL (31.6-35.5); Mean Corpuscular Hemoglobin 22.1 pg (28.0-33.3); Mean Corpuscular Volume 72.7 fL (83.0-100.0); Mean Platelet Volume 10.2 fL (9.4-12.4); Monocytes # 0.7 K/mcL (0.0-1.3); Monocytes % 4.9 %; Neutrophils # 12.5 K/mcL (1.6-8.9); Platelet Count 399 K/mcL (140-400); Red Blood Count 4.84 M/mcL (4.19-5.50); Red Cell Distribution Width 21.2 % (11.5-14.5); Segmented Neutrophils % 88.4 %; White Blood Count 14.2 K/mcL (4.3-11.1)
[2021-08-08 01:16] LABS: Albumin/Globulin Ratio 0.8 (1.1-2.2); Bilirubin,Direct 0.2 mg/dL (0.0-0.2); Bilirubin,Indirect 0.3 mg/dL (0.0-1.0); Bilirubin,Total 0.5 mg/dL (0.3-1.0); Globulin 3.8 g/dL (2.4-3.5); Total Protein 6.8 g/dL (6.4-8.9)
[2021-08-08 01:17] LABS: BUN/Creatinine Ratio 36 (6-26); Blood Urea Nitrogen 39 mg/dL (8-23); Calcium 8.4 mg/dL (8.6-10.3); Carbon Dioxide 29 mEq/L (23-29); Chloride 103 mEq/L (98-107); Glucose 135 mg/dL (70-105); Osmolality,Calculated 295 (280-300); Potassium 3.5 mEq/L (3.5-5.1); Sodium 137 mEq/L (136-145); eGFR For African Americans > 60 (> 60); eGFR For Non-African Americans > 60 (> 60)
[2021-08-08] MEDS: Budesonide/Formoterol 160/4.5 1 PUFF INH IH SCH ×2 (07:51→20:13)
[2021-08-08] MEDS: Cholecalciferol (D-3) 1,000 UNIT (25MCG) TABLET PO SCH (08:11)
[2021-08-08] MEDS: Furosemide 40 MG/4 ML VIAL IVP SCH ×2 (08:13→16:48)
[2021-08-08] MEDS: Remdesivir 100 MG in 0.9 % Sodium Chloride 100 ML IVPB SCH (11:35)
[2021-08-08] MEDS: *HR* Rivaroxaban 10 MG TABLET PO SCH (16:48)
[2021-08-09 02:11] LABS: Basophils % 0.1 %; Hematocrit 36.9 % (37.5-50.1); Hemoglobin 10.9 g/dL (12.9-16.9); Immature Granulocytes % 1.1 % (0-4); Lymphocytes # 0.7 K/mcL (0.6-4.6); Lymphocytes % 6.1 %; Mean Corpuscular HGB Conc 29.5 g/dL (31.6-35.5); Mean Corpuscular Hemoglobin 21.6 pg (28.0-33.3); Mean Corpuscular Volume 73.1 fL (83.0-100.0); Mean Platelet Volume 10.3 fL (9.4-12.4); Monocytes # 0.6 K/mcL (0.0-1.3); Monocytes % 4.9 %; Neutrophils # 10.7 K/mcL (1.6-8.9); Platelet Count 435 K/mcL (140-400); Red Blood Count 5.05 M/mcL (4.19-5.50); Segmented Neutrophils % 87.8 %; White Blood Count 12.2 K/mcL (4.3-11.1)
[2021-08-09 02:31] LABS: BUN/Creatinine Ratio 39 (6-26); Blood Urea Nitrogen 42 mg/dL (8-23); Calcium 8.4 mg/dL (8.6-10.3); Carbon Dioxide 31 mEq/L (23-29); Chloride 100 mEq/L (98-107); Glucose 116 mg/dL (70-105); Osmolality,Calculated 291 (280-300); Potassium 3.5 mEq/L (3.5-5.1); Sodium 135 mEq/L (136-145); eGFR For African Americans > 60 (> 60); eGFR For Non-African Americans > 60 (> 60)
[2021-08-09 02:34] LABS: Albumin 2.9 g/dL (3.5-5.7); Albumin/Globulin Ratio 0.8 (1.1-2.2); Bilirubin,Direct 0.2 mg/dL (0.0-0.2); Bilirubin,Indirect 0.3 mg/dL (0.0-1.0); Bilirubin,Total 0.5 mg/dL (0.3-1.0); Globulin 3.7 g/dL (2.4-3.5); Total Protein 6.6 g/dL (6.4-8.9)
[2021-08-09] MEDS: Budesonide/Formoterol 160/4.5 1 PUFF INH IH SCH ×2 (08:02→19:54)
[2021-08-09] MEDS: Cholecalciferol (D-3) 1,000 UNIT (25MCG) TABLET PO SCH (09:36)
[2021-08-09] MEDS: Furosemide 40 MG/4 ML VIAL IVP SCH ×2 (09:40→17:04)
[2021-08-09] MEDS: Remdesivir 100 MG in 0.9 % Sodium Chloride 100 ML IVPB SCH (12:01)
[2021-08-09] MEDS: *HR* Rivaroxaban 10 MG TABLET PO SCH (17:05)
[2021-08-10] MEDS ORDERED: Saline Nasal Spray 44 ML BOTTLE NS PRN (02:31)
[2021-08-10 02:47] LABS: Alanine Aminotransferase 79 Units/L (7-52); Albumin 2.9 g/dL (3.5-5.7); Albumin/Globulin Ratio 0.7 (1.1-2.2); Alkaline Phosphatase 101 Units/L (34-104); Aspartate Amino Transferase 68 Units/L (13-39); BUN/Creatinine Ratio 33 (6-26); Bilirubin,Direct 0.2 mg/dL (0.0-0.2); Bilirubin,Indirect 0.4 mg/dL (0.0-1.0); Bilirubin,Total 0.6 mg/dL (0.3-1.0); Blood Urea Nitrogen 40 mg/dL (8-23); Calcium 8.1 mg/dL (8.6-10.3); Carbon Dioxide 36 mEq/L (23-29); Chloride 96 mEq/L (98-107); Globulin 3.9 g/dL (2.4-3.5); Glucose 125 mg/dL (70-105); Osmolality,Calculated 295 (280-300); Potassium 3.2 mEq/L (3.5-5.1); Sodium 137 mEq/L (136-145); Total Protein 6.8 g/dL (6.4-8.9); eGFR For African Americans > 60 (> 60); eGFR For Non-African Americans 58 (> 60)
[2021-08-10 02:53] LABS: Hemoglobin 10.8 g/dL (12.9-16.9)
[2021-08-10 02:55] LABS: Basophils % 0.2 %; Hematocrit 36.8 % (37.5-50.1); Immature Granulocytes % 1.1 % (0-4); Immature Platelets 7.1 % (1.1-6.1); Lymphocytes # 0.8 K/mcL (0.6-4.6); Lymphocytes % 7.5 %; Mean Corpuscular HGB Conc 29.3 g/dL (31.6-35.5); Mean Corpuscular Hemoglobin 21.4 pg (28.0-33.3); Mean Corpuscular Volume 72.9 fL (83.0-100.0); Mean Platelet Volume 10.6 fL (9.4-12.4); Monocytes # 0.6 K/mcL (0.0-1.3); Monocytes % 5.9 %; Neutrophils # 8.5 K/mcL (1.6-8.9); Platelet Count 422 K/mcL (140-400); Red Blood Count 5.05 M/mcL (4.19-5.50); Segmented Neutrophils % 85.3 %
[2021-08-10] MEDS: Budesonide/Formoterol 160/4.5 1 PUFF INH IH SCH ×2 (08:21→19:50)
[2021-08-10] MEDS: Furosemide 40 MG/4 ML VIAL IVP SCH ×2 (09:30→17:40)
[2021-08-10] MEDS: Cholecalciferol (D-3) 1,000 UNIT (25MCG) TABLET PO SCH (09:31)
[2021-08-10] MEDS: Remdesivir 100 MG in 0.9 % Sodium Chloride 100 ML IVPB SCH (09:31)
[2021-08-10] MEDS: *HR* Rivaroxaban 10 MG TABLET PO SCH (17:40)
[2021-08-10] MEDS ORDERED: Ondansetron ODT 4 MG TAB.RAPDIS SL PRN (19:31)
[2021-08-11 05:41] LABS: Basophils % 0.2 %; Hemoglobin 11.4 g/dL (12.9-16.9); Immature Granulocytes % 1.4 % (0-4); Lymphocytes # 1.1 K/mcL (0.6-4.6); Lymphocytes % 8.8 %; Mean Corpuscular HGB Conc 29.2 g/dL (31.6-35.5); Mean Corpuscular Hemoglobin 21.6 pg (28.0-33.3); Mean Corpuscular Volume 73.9 fL (83.0-100.0); Mean Platelet Volume 10.5 fL (9.4-12.4); Monocytes # 0.7 K/mcL (0.0-1.3); Monocytes % 5.7 %; Neutrophils # 10.1 K/mcL (1.6-8.9); Platelet Count 460 K/mcL (140-400); Red Blood Count 5.28 M/mcL (4.19-5.50); Red Cell Distribution Width 20.9 % (11.5-14.5); Segmented Neutrophils % 83.9 %
[2021-08-11 05:54] LABS: Albumin 3.1 g/dL (3.5-5.7); Albumin/Globulin Ratio 0.8 (1.1-2.2); Bilirubin,Direct 0.2 mg/dL (0.0-0.2); Bilirubin,Indirect 0.5 mg/dL (0.0-1.0); Bilirubin,Total 0.7 mg/dL (0.3-1.0); Globulin 3.7 g/dL (2.4-3.5); Total Protein 6.8 g/dL (6.4-8.9)
[2021-08-11 05:55] LABS: BUN/Creatinine Ratio 32 (6-26); Blood Urea Nitrogen 38 mg/dL (8-23); Calcium 8.6 mg/dL (8.6-10.3); Carbon Dioxide 38 mEq/L (23-29); Chloride 96 mEq/L (98-107); Glucose 117 mg/dL (70-105); Osmolality,Calculated 298 (280-300); Potassium 3.7 mEq/L (3.5-5.1); Sodium 139 mEq/L (136-145); eGFR For African Americans > 60 (> 60); eGFR For Non-African Americans > 60 (> 60)
[2021-08-11] MEDS: Budesonide/Formoterol 160/4.5 1 PUFF INH IH SCH ×2 (07:36→20:15)
[2021-08-11] MEDS: Furosemide 40 MG/4 ML VIAL IVP SCH ×2 (09:56→17:22)
[2021-08-11] MEDS: Cholecalciferol (D-3) 1,000 UNIT (25MCG) TABLET PO SCH (09:57)
[2021-08-11] MEDS: *HR* Rivaroxaban 10 MG TABLET PO SCH (17:13)
[2021-08-11] MEDS: Sennosides/Docusate Sodium TABLET PO PRN (17:21)
[2021-08-12] MEDS: Budesonide/Formoterol 160/4.5 1 PUFF INH IH SCH ×2 (07:59→20:39)
[2021-08-12] MEDS: Cholecalciferol (D-3) 1,000 UNIT (25MCG) TABLET PO SCH (08:59)
[2021-08-12] MEDS: Furosemide 40 MG/4 ML VIAL IVP SCH ×2 (09:00→17:45)
[2021-08-12] MEDS: Sennosides/Docusate Sodium TABLET PO PRN (09:19)
[2021-08-12 10:13] LABS: Basophils % 0.1 %; Eosinophils % 0.1 %; Hematocrit 40.9 % (37.5-50.1); Hemoglobin 11.9 g/dL (12.9-16.9); Immature Granulocytes % 0.9 % (0-4); Lymphocytes # 1.2 K/mcL (0.6-4.6); Lymphocytes % 8.5 %; Mean Corpuscular HGB Conc 29.1 g/dL (31.6-35.5); Mean Corpuscular Hemoglobin 21.5 pg (28.0-33.3); Mean Corpuscular Volume 73.8 fL (83.0-100.0); Mean Platelet Volume 10.6 fL (9.4-12.4); Monocytes # 0.7 K/mcL (0.0-1.3); Monocytes % 5.3 %; Neutrophils # 11.7 K/mcL (1.6-8.9); Platelet Count 456 K/mcL (140-400); Red Blood Count 5.54 M/mcL (4.19-5.50); Red Cell Distribution Width 20.9 % (11.5-14.5); Segmented Neutrophils % 85.1 %; White Blood Count 13.7 K/mcL (4.3-11.1)
[2021-08-12 10:28] LABS: BUN/Creatinine Ratio 30 (6-26); Blood Urea Nitrogen 37 mg/dL (8-23); Calcium 8.7 mg/dL (8.6-10.3); Carbon Dioxide 36 mEq/L (23-29); Chloride 93 mEq/L (98-107); Glucose 172 mg/dL (70-105); Osmolality,Calculated 293 (280-300); Potassium 3.2 mEq/L (3.5-5.1); Sodium 135 mEq/L (136-145); eGFR For African Americans > 60 (> 60); eGFR For Non-African Americans 58 (> 60)
[2021-08-12] MEDS ORDERED: Potassium Chloride Elixir 20 MEQ/15 ML UDC PO ONE ×2 (13:40→19:30)
[2021-08-12] MEDS: *HR* Rivaroxaban 10 MG TABLET PO SCH (17:42)
[2021-08-12] MEDS: polyethylene glycoL 3350 17 GM POWD.PACK PO SCH (17:45)
[2021-08-13 06:53] LABS: Basophils % 0.1 %; Eosinophils % 0.1 %; Hematocrit 38.2 % (37.5-50.1); Hemoglobin 11.1 g/dL (12.9-16.9); Immature Granulocytes % 0.9 % (0-4); Lymphocytes # 1.1 K/mcL (0.6-4.6); Lymphocytes % 7.2 %; Mean Corpuscular HGB Conc 29.1 g/dL (31.6-35.5); Mean Corpuscular Hemoglobin 21.8 pg (28.0-33.3); Mean Corpuscular Volume 74.9 fL (83.0-100.0); Mean Platelet Volume 10.7 fL (9.4-12.4); Monocytes % 6.4 %; Neutrophils # 12.8 K/mcL (1.6-8.9); Platelet Count 409 K/mcL (140-400); Red Cell Distribution Width 20.7 % (11.5-14.5); Segmented Neutrophils % 85.3 %
[2021-08-13 07:22] LABS: BUN/Creatinine Ratio 35 (6-26); Blood Urea Nitrogen 38 mg/dL (8-23); Calcium 8.4 mg/dL (8.6-10.3); Carbon Dioxide 35 mEq/L (23-29); Chloride 97 mEq/L (98-107); Glucose 102 mg/dL (70-105); Osmolality,Calculated 293 (280-300); Sodium 137 mEq/L (136-145); eGFR For African Americans > 60 (> 60); eGFR For Non-African Americans > 60 (> 60)
[2021-08-13] MEDS: Budesonide/Formoterol 160/4.5 1 PUFF INH IH SCH ×2 (08:09→20:21)
[2021-08-13] MEDS: Cholecalciferol (D-3) 1,000 UNIT (25MCG) TABLET PO SCH (09:23)
[2021-08-13] MEDS: Furosemide 40 MG/4 ML VIAL IVP SCH ×2 (09:24→17:35)
[2021-08-13] MEDS: polyethylene glycoL 3350 17 GM POWD.PACK PO SCH (09:31)
[2021-08-13] MEDS: *HR* Rivaroxaban 10 MG TABLET PO SCH (17:34)
[2021-08-14] MEDS: Budesonide/Formoterol 160/4.5 1 PUFF INH IH SCH ×2 (08:15→20:36)
[2021-08-14] MEDS: Cholecalciferol (D-3) 1,000 UNIT (25MCG) TABLET PO SCH (09:11)
[2021-08-14] MEDS: Furosemide 40 MG/4 ML VIAL IVP SCH ×2 (09:13→18:11)
[2021-08-14] MEDS: polyethylene glycoL 3350 17 GM POWD.PACK PO SCH (09:14)
[2021-08-14] MEDS: *HR* Rivaroxaban 10 MG TABLET PO SCH (18:11)
[2021-08-15 03:40] LABS: Eosinophils # 0.1 K/mcL (0.0-0.6); Eosinophils % 0.8 %; Hematocrit 36.4 % (37.5-50.1); Hemoglobin 10.9 g/dL (12.9-16.9); Immature Granulocytes % 0.8 % (0-4); Lymphocytes % 10.2 %; Mean Corpuscular HGB Conc 29.9 g/dL (31.6-35.5); Mean Corpuscular Hemoglobin 22.3 pg (28.0-33.3); Mean Corpuscular Volume 74.4 fL (83.0-100.0); Mean Platelet Volume 10.9 fL (9.4-12.4); Monocytes # 0.8 K/mcL (0.0-1.3); Neutrophils # 7.9 K/mcL (1.6-8.9); Platelet Count 390 K/mcL (140-400); Red Blood Count 4.89 M/mcL (4.19-5.50); Red Cell Distribution Width 20.6 % (11.5-14.5); Segmented Neutrophils % 80.2 %; White Blood Count 9.9 K/mcL (4.3-11.1)
[2021-08-15 03:54] LABS: BUN/Creatinine Ratio 30 (6-26); Blood Urea Nitrogen 32 mg/dL (8-23); Calcium 8.1 mg/dL (8.6-10.3); Carbon Dioxide 35 mEq/L (23-29); Chloride 98 mEq/L (98-107); Glucose 105 mg/dL (70-105); Osmolality,Calculated 289 (280-300); Sodium 136 mEq/L (136-145); eGFR For African Americans > 60 (> 60); eGFR For Non-African Americans > 60 (> 60)
[2021-08-15] MEDS: Furosemide 40 MG/4 ML VIAL IVP SCH (07:45)
[2021-08-15] MEDS: Cholecalciferol (D-3) 1,000 UNIT (25MCG) TABLET PO SCH (07:47)
[2021-08-15] MEDS: polyethylene glycoL 3350 17 GM POWD.PACK PO SCH (07:48)
[2021-08-15] MEDS: Budesonide/Formoterol 160/4.5 1 PUFF INH IH SCH ×2 (08:34→21:51)
[2021-08-15] MEDS: *HR* Rivaroxaban 10 MG TABLET PO SCH (16:59)
[2021-08-15] MEDS: Furosemide 40 MG TABLET PO SCH (16:59)
[2021-08-16] MEDS: Cholecalciferol (D-3) 1,000 UNIT (25MCG) TABLET PO SCH (07:48)
[2021-08-16] MEDS: Furosemide 40 MG TABLET PO SCH (07:50)
[2021-08-16] MEDS: polyethylene glycoL 3350 17 GM POWD.PACK PO SCH (07:50)
[2021-08-16] MEDS: Budesonide/Formoterol 160/4.5 1 PUFF INH IH SCH ×2 (08:04→20:18)
[2021-08-16] MEDS ORDERED: Isovue-370 500 ML BOTTLE IVP ONE (09:04)
[2021-08-16] MEDS: Furosemide 40 MG/4 ML VIAL IVP SCH (16:27)
[2021-08-16] MEDS: *HR* Rivaroxaban 10 MG TABLET PO SCH (16:27)
[2021-08-17 02:15] LABS: Eosinophils # 0.1 K/mcL (0.0-0.6); Eosinophils % 0.5 %; Hemoglobin 11.3 g/dL (12.9-16.9); Immature Granulocytes % 0.7 % (0-4); Lymphocytes # 1.2 K/mcL (0.6-4.6); Lymphocytes % 10.6 %; Mean Corpuscular HGB Conc 30.5 g/dL (31.6-35.5); Mean Corpuscular Hemoglobin 22.7 pg (28.0-33.3); Mean Corpuscular Volume 74.4 fL (83.0-100.0); Mean Platelet Volume 10.4 fL (9.4-12.4); Monocytes # 0.9 K/mcL (0.0-1.3); Monocytes % 8.5 %; Neutrophils # 8.7 K/mcL (1.6-8.9); Platelet Count 338 K/mcL (140-400); Red Blood Count 4.97 M/mcL (4.19-5.50); Segmented Neutrophils % 79.7 %; White Blood Count 10.9 K/mcL (4.3-11.1)
[2021-08-17 02:34] LABS: BUN/Creatinine Ratio 30 (6-26); Blood Urea Nitrogen 31 mg/dL (8-23); Carbon Dioxide 33 mEq/L (23-29); Chloride 97 mEq/L (98-107); Glucose 112 mg/dL (70-105); Osmolality,Calculated 289 (280-300); Potassium 3.5 mEq/L (3.5-5.1); Sodium 136 mEq/L (136-145); eGFR For African Americans > 60 (> 60); eGFR For Non-African Americans > 60 (> 60)
[2021-08-17] MEDS: Budesonide/Formoterol 160/4.5 1 PUFF INH IH SCH ×2 (07:54→20:06)
[2021-08-17] MEDS: Furosemide 40 MG/4 ML VIAL IVP SCH ×2 (08:09→18:41)
[2021-08-17] MEDS: polyethylene glycoL 3350 17 GM POWD.PACK PO SCH (08:09)
[2021-08-17] MEDS: Cholecalciferol (D-3) 1,000 UNIT (25MCG) TABLET PO SCH (08:09)
[2021-08-17] MEDS: dexAMETHasone 4 MG TABLET PO SCH (08:09)
[2021-08-17] MEDS: Nystatin SUSP 5 ML UD.LIQ PO SCH ×4 (11:11→21:37)
[2021-08-17] MEDS: *HR* Rivaroxaban 10 MG TABLET PO SCH (18:41)
[2021-08-18] MEDS: Furosemide 40 MG/4 ML VIAL IVP SCH ×2 (07:52→16:23)
[2021-08-18] MEDS: dexAMETHasone 4 MG TABLET PO SCH (07:52)
[2021-08-18] MEDS: Nystatin SUSP 5 ML UD.LIQ PO SCH ×4 (07:53→22:21)
[2021-08-18] MEDS: Cholecalciferol (D-3) 1,000 UNIT (25MCG) TABLET PO SCH (07:53)
[2021-08-18] MEDS: polyethylene glycoL 3350 17 GM POWD.PACK PO SCH (07:53)
[2021-08-18] MEDS: Budesonide/Formoterol 160/4.5 1 PUFF INH IH SCH ×2 (10:06→21:04)
[2021-08-18] MEDS: *HR* Rivaroxaban 10 MG TABLET PO SCH (16:23)
[2021-08-19] MEDS: Furosemide 40 MG/4 ML VIAL IVP SCH (07:54)
[2021-08-19] MEDS: dexAMETHasone 4 MG TABLET PO SCH (07:54)
[2021-08-19] MEDS: Nystatin SUSP 5 ML UD.LIQ PO SCH ×4 (07:54→21:13)
[2021-08-19] MEDS: Cholecalciferol (D-3) 1,000 UNIT (25MCG) TABLET PO SCH (07:54)
[2021-08-19] MEDS: polyethylene glycoL 3350 17 GM POWD.PACK PO SCH (07:54)
[2021-08-19] MEDS: Budesonide/Formoterol 160/4.5 1 PUFF INH IH SCH ×2 (08:05→20:56)
[2021-08-19] MEDS: Furosemide 40 MG TABLET PO SCH (16:21)
[2021-08-19] MEDS: *HR* Rivaroxaban 10 MG TABLET PO SCH (16:21)
[2021-08-20] MEDS: Budesonide/Formoterol 160/4.5 1 PUFF INH IH SCH (07:57)
[2021-08-20] MEDS: Furosemide 40 MG TABLET PO SCH (08:41)
[2021-08-20] MEDS: polyethylene glycoL 3350 17 GM POWD.PACK PO SCH (08:41)
[2021-08-20] MEDS: Cholecalciferol (D-3) 1,000 UNIT (25MCG) TABLET PO SCH (08:41)
[2021-08-20] MEDS: Nystatin SUSP 5 ML UD.LIQ PO SCH ×2 (08:41→12:49)
[2021-08-20 12:27] VITALS: BP 102/73; PULSE 88; TEMP 97.2; O2SAT 95
== END 2021-08-20 14:19 | disposition home or self-care (01) | DRG 177 ==
LOC: EMEROOARM 07:27 → SUATTDRO 13:49 → 2NENU 13:49
PROVIDERS: ADMIT Internal Medicine; ATTEND Internal Medicine